=== PATIENT | female | born 1955 | race Caucasian/White ===

== ENCOUNTER → 2018-10-27 | Outpatient (CLI) | payer OTHER | LOC: M.RAD 10:17 | DX: Z12.31 Encounter for screening mammogram for malignant neoplasm of breast (principal) ==

== ENCOUNTER → 2018-10-29 | Outpatient (CLI) | payer OTHER | LOC: M.ULTRA 09:08 | DX: N63.23 Unspecified lump in the left breast, lower outer quadrant (principal) ==

== ENCOUNTER → 2018-11-05 | Outpatient (CLI) | payer OTHER ==
--- NOTE | 2018-11-10 11:06 | PATH ---
[address] [address] PATHOLOGY RPT PROCEDURE Name: SAL FUNG Room: [facility]#: [id number] Admission: 11/05/18 Date of : 55 Discharge: Report #: [id number] Path Case #: [id number] L[facility] Accession Number: [id number] . 01 Material submitted: . LEFT BREAST . 01 Clinical history: . 0.94 x 0.52 x 0.73 cm, 4:00, 8 cm from nipple . 02 Diagnosis: Left breast, 4:00, 8 cm from nipple, image guided core biopsies: - Benign breast tissue with usual ductal epithelial hyperplasia, cystic apocrine change and mild chronic inflammation, negative for atypia. See comment. LBQ/11/07/2018 . 02 Comment: Reviewed with Dr. Clovis Kennedy who agrees with the diagnosis. (DAVID/db; 11/07/2018) . 02 Electronically signed: . Lucien Acosta MD, Pathologist NPI- [id number] . 01 Gross description: . Received in formalin labeled "Sal Fung, left breast 4:00, 8 cm fn," are multiple needle cores of yellow-luong fibrofatty tissue measuring 2.3 x 2.0 x 0.5 cm in aggregate dimensions. The tissue is submitted in its entirety in cassettes A1 through A3. The cold ischemic time is less than one minute. The total formalin fixation time is 33 hours and 38 minutes. (TSD; 11/05/2018) TOB/TOB . 02 Pathologist provided ICD-10: N62, N61.0 . 02 CPT . 744491 Specimen Comment: A courtesy copy of this report has been sent to Specimen Comment: [phone], , . Specimen Comment: Report sent to ,DR STEVENSON / DR ALCARAZ Specimen Comment: A duplicate report has been generated due to demographic updates. Performed at: [address], [place] [id number] MD Kan Holt MD Phone: [phone] [place] [address] PATHOLOGY RPT PROCEDURE Name: SAL FUNG Room: [facility]#: [id number] Admission: 11/05/18 Date of : 55 Discharge: Report #: [id number] Path Case #: [id number] Performed at: [address] [place] [id number] MD Lucien Acosta MD Phone: [phone]
== END | disposition home or self-care (01) ==
LOC: M.ULTRA 07:53
DX: N61.0 Mastitis without abscess (principal); N62 Hypertrophy of breast; R92.1 Mammographic calcification found on diagnostic imaging of breast

== ENCOUNTER → 2019-04-17 | Outpatient (CLI) | payer OTHER | LOC: M.RAD 10:54 → M.ULTRA 11:30 | DX: N60.02 Solitary cyst of left breast (principal); R92.8 Other abnormal and inconclusive findings on diagnostic imaging of breast ==

== ENCOUNTER → 2019-12-15 | Outpatient (CLI) | payer OTHER | LOC: M.RAD 12:48 | DX: Z12.31 Encounter for screening mammogram for malignant neoplasm of breast (principal) ==

== ENCOUNTER 2020-09-14 20:01 | Inpatient (IN) | payer MEDICARE ==
[~2020-09-14] VITALS: Ht 170.2 cm; Wt 106.5 kg
[2020-09-14 20:18] VITALS: BP 148/86
[2020-09-14] MEDS ORDERED: WOMEN'S 50 PLU1 EAC1 PO (20:26)
[2020-09-14] MEDS ORDERED: VITAMIN D3 COM1 EACH PO (20:26)
[2020-09-14] MEDS ORDERED: APAP650 PO (20:27)
[2020-09-14] MEDS ORDERED: ST. JOSEPH ASPI81 MG PO (20:27)
[2020-09-14] MEDS ORDERED: ZYRTEC10 M5 PO (20:27)
[2020-09-14] MEDS ORDERED: CLARITIN10 MG PO (20:27)
[2020-09-14] MEDS ORDERED: KLOR-CON 1010 MEQ PO (20:28)
[2020-09-14] MEDS ORDERED: HYDROCHLOROTHIA25 M2 PO (20:28)
[2020-09-14] MEDS ORDERED: SINGULAIR 10 MG10 M1 PO (20:29)
[2020-09-14] MEDS ORDERED: DEXAMETHASONE 44 M1 PO (20:29)
[2020-09-14 20:40] LABS: HEMATOCRIT 42.8 % (37.0-47.0); HEMOGLOBIN 14.3 gm/dL (12.0-15.0); MCH 28.9 pg (26.0-34.0); MCHC 33.5 g/dL (28.0-37.0); MCV 86.4 fL (80.0-100.0); MPV 7.9 fl. (7.2-11.1); NUCLEATED RBCS 0 /100WBC; PLATELET COUNT* 130 thou/uL (150-400); RBC 4.96 mil/uL (4.20-5.00); RDW-CV 14.5 % (10.5-14.5); WBC 7.5 thou/uL (4.0-11.0)
[2020-09-14 20:52] LABS: CALCIUM 7.9 mg/dL (8.5-10.1); CREATININE 1.1 mg/dL (0.6-1.3); POTASSIUM 4.2 mmol/L (3.5-5.1)
[2020-09-14 20:53] LABS: PROTIME 10.5 Seconds (9.20-11.50)
[2020-09-14 21:03] LABS: ALBUMIN 2.7 g/dL (3.4-5.0); TOTAL BILIRUBIN 0.4 mg/dL (<0.1-1.0); TOTAL PROTEIN 7.5 g/dL (6.4-8.2)
[2020-09-14 21:11] LABS: ABSOLUTE LYMPHOCYTES 0.6 thou/uL (0.8-5.3); ABSOLUTE MONOCYTES 0.5 thou/uL (0.0-1.2); ABSOLUTE NEUTROPHILS 6.5 thou/uL (1.6-8.1)
[2020-09-14 21:13] LABS: PLATELET ESTIMATE INCREASED
[2020-09-14 22:41] LABS: pH 7.469 (7.340-7.450)
[2020-09-14 22:44] LABS: PO2 59.9 mmHg (75.0-100.0)
[2020-09-15] VITALS (9 sets, daily range): BP systolic 106–164; BP diastolic 45–74
--- NOTE | 2020-09-15 04:11 | NUR ---
PATIENT ARRIVED ON UNIT AT 0030. IV NOTED TO BE INFILTRATED. NEW IV PLACED. PATIENT ALERT AND ORIENTED TIMES FOUR. GAIT STEADY. EDUCATED ABOUT POLICIES AND PROCEDURES. NO COMPLAINTS OF PAIN OR DISCOMFORT NOTED. DOCUMENT CONTROL ASSISTANT AND HOURLY ROUNDING COMPLETED DOCUMENTED.
--- NOTE | 2020-09-15 10:14 | NUR ---
PATIENT HAS SLEPT WELL THROUGHOUT THE NIGHT. VSS ON 13L HIGH FLOW. MEDICATIONS GIVEN ORDERED AND CHARTED. ASSESSMENT CHARTED. PATIENT UP AD-TALI. NEW IV INSERTED IN RIGHT HAND-NS @ 70ML/HR. PATIENT INSTRUCTED TO USE CALL LIGHT WHEN NEEDING ASSISTANCE. HOURLY ROUNDS MADE. WILL CONTINUE WITH PLAN OF CARE AND NURSING TO MONITOR.
--- NOTE | 2020-09-15 17:28 | EKG ---
[place] [address] ELECTROCARDIOGRAM REPORT Name: SAL FUNG Room: [address] ADM IN .R.#: [id number] Admission: 09/14/20 Attend Phys: Landon Jones, Discharge: Date of : 55 Date of Service: 09/14/202010 Report #: [id number] THIS REPORT FOR: //name// [facility] ED Test Date: 2020-09-14 Test Time: 20:11:05 Pat Name: SAL FUNG Department: Room: [facility] Gender: F Purse Seining Hand: ROMAN : 1955 Requested By: Estefani Way Order Number: [id number] MD: Juwan Small Measurements Intervals [place] Rate: 85 P: 40 ID: 121 QRS: -64 QRSD: 92 T: -1 QT: 365 QTc: 434 Interpretive Statements Sinus rhythm Left anterior fascicular block RSR' in V1 or V2, right VCD Borderline T abnormalities, inferior leads Compared to ECG 11/02/2008 16:12:09 Left anterior fascicular block now present RSR' in V1 or V2 now present T-wave abnormality now present Electronically Signed On 09-15-2020 17:28:06 QUALITY ASSURANCE NURSE by Juwan Small [email or web address] <ELECTRONICALLY SIGNED> By: Juwan Small MD, [facility] 09/15/20 1728 10 10 Juwan mSall MD, [facility] /EPI
--- NOTE | 2020-09-15 18:36 | NUR ---
ASSESSMENT DOCUMENTED. MEDS GIVEN PER E-MAR. IV PATENT, FLUIDS INFUSING. TYLENOL GIVEN FOR HEADACHE WITH RELIEF. PT O2 INCREASED FROM 5LNC TO 7L NC AND PT STARTED COUGHING UP BLOOD TINGED SPUTUM. DR NOTIFIED, ORDERS RECIEVED. PTS UPDATED ON PLAN OF CARE.
[2020-09-15 23:21] LABS: PCO2 36.4 mmHg (35.0-45.0); pH 7.463 (7.340-7.450)
[2020-09-16] VITALS (154 sets, daily range): BP systolic 50–177; BP diastolic 36–91
--- NOTE | 2020-09-16 04:47 | NUR ---
ASSUMED PT CARE AT APPROX 1930. PT IS AWAKE AND ORIENTED X4. PT IS TRACING SR/ST ON THE PHOTO EDITOR. spO2 IS IN THE LOW 80'S ON 7L OF O2/HFC. RT INFORMED AND PT WAS PUT ON 8L OF O2/HFC AND A NON REBREATHER AT 15L, spO2 WENT UP TO 88-89%. PT DOES NOT APPEAR TO HAVE LABORED BREATHING AND DENIES SHORTNESS OF AIR AT REST. PROVIDED O2 SUPPORT VIA HEATED OPTIFLOW WITH 50L O2,fiO2 OF 100%, spO2=90-93%. DR CALDERON INFORMED, ORDERS OBTAINED AND CARRIED OUT. MEDS GIVEN PER NOV. PT IS CLOSELY MONITORED.
[2020-09-16 07:09] LABS: INFLUENZA A ANTIGEN Negative (Negative); INFLUENZA B ANTIGEN Negative (Negative)
[2020-09-16 09:10] LABS: CREATININE 0.8 mg/dL (0.6-1.3); POTASSIUM 3.7 mmol/L (3.5-5.1)
--- NOTE | 2020-09-16 10:47 | NUR ---
LATE ENTRY FOR 09/15 1600 SPOKE WITH PT.ON PHONE IN ROOM DUE TO COVID 19 AND IN ENHANCED PRECAUTIONS. SHE SAID SHE LIVES WITH HER . SHE IS NORMALLY INDEPENDENT. SHE DOES HAVE A HX OF ASTHMA. SAID HER MOTHER IN LAW JUST GOT OUT OF THE HOSPITAL AFTER HAVING COVID. PT.USES NO DME AND NO HX OF HH.
[2020-09-16 12:54] LABS: BE 7.1 mmol/L (-2 to +3); pH 7.468 (7.340-7.450)
[2020-09-16 12:59] LABS: PO2 49.5 mmHg (75.0-100.0)
[2020-09-16 13:06] LABS: ALBUMIN 2.3 g/dL (3.4-5.0); DIRECT BILIRUBIN 0.1 mg/dL (<0.1-0.3); TOTAL BILIRUBIN 0.3 mg/dL (<0.1-1.0)
--- NOTE | 2020-09-16 13:59 | CON ---
[address] [address] CONSULTATION Name: KENTONSAL ANN Room: [address] IN M.R.#: [id number] Admission: 09/14/20 Attend Phys: Landon Jones MD Discharge: Date of : 55 Report #: [id number] THIS REPORT FOR: cc: Aakash Echeverria MD, Matthew W. MD ~ Forrest Mcclure MD DATE OF SERVICE: 09/16/2020 CONSULT REQUESTED BY: Jaswant Nixon DO. INDICATION FOR CONSULTATION: Acute hypoxemic respiratory failure secondary to COVID-19. HISTORY OF PRESENT ILLNESS: This is a 65-year-old female with past medical history as mentioned below. The patient is a lifetime nonsmoker; however, she does have a history of obstructive sleep apnea and she uses a CPAP at home. Also, she does have a history of bronchial asthma. The patient is overweight with a body mass index of 38.4. This time the patient was initially admitted late in the day on 09/14/2020. Presentation was with acute increase in shortness of breath. The patient has had family members who are also sick and are diagnosed with COVID-19. She said that she was sick since 09/09 and had a high-grade fever of 102 degrees Fahrenheit, had been having some diarrhea, was feeling weak and was having a decrease in appetite. She also was coughing initially it was nonproductive and later on a green in color. She did not report any change in her smell or taste. The patient upon initial presentation was requiring about 3 liters of oxygen to maintain O2 saturation. She has been declining since admission. Overnight, she desaturated to the point that she was requiring 100% FiO2 with 55 liters of flow to maintain O2 saturation in the low 90s. This morning. O2 saturation dipped down to 85% with this therapy and the patient was placed on a BiPAP. The patient currently is on a BiPAP with 100% FiO2. She is saturating 92%. She is tachypneic with respiratory rate around 36-38, blood pressure, however, is holding of 148/72 this morning. The patient is alert, awake and oriented. She does have some swelling of lower extremities. She did not complain of calf pain. REVIEW OF SYSTEMS: For 12 points is negative except as mentioned above. PAST MEDICAL HISTORY: Bronchial asthma, obstructive sleep apnea, uses a CPAP at home, tonsillectomy, tubal ligation, surgery to the mandible, left elbow surgery and tonsillectomy. SOCIAL HISTORY: Lifetime nonsmoker, only rare alcohol use. [place] [address] CONSULTATION Name: SAL FUNG Room: [address] IN M.R.#: [id number] Admission: 09/14/20 Attend Phys: Landon Jones MD Discharge: Date of : 55 Report #: [id number] illegal drug use. CURRENT MEDICATIONS: List in [employer] reviewed. HOME MEDICATIONS: List also in [employer] reviewed. ALLERGIES: No known drug allergies. FAMILY HISTORY: There are other family members who are also diagnosed with COVID-19. PHYSICAL EXAMINATION: VITAL SIGNS: The patient appeared to be short of breath at rest, was on a BiPAP with 100% FiO2 at 16/8. Sed rate 12; however, she was breathing in the high 30s, afebrile today with a temperature of 36.4, did have a low-grade fever up to 37.7 overnight. HEENT: Head is normocephalic and atraumatic. There is a BiPAP in place. NECK: Does not show raised JVP, asymmetry, mass or lymph nodes. CHEST: Symmetrical expansion on inspection and palpation. On auscultation, breath sounds are bilaterally equal, but decreased. There is some accessory muscle use despite being on BiPAP. HEART: Regular. There is no murmur. ABDOMEN: Soft and nontender. EXTREMITIES: Lower extremities show 1+ edema with no calf tenderness. SKIN: Dry and intact. NEUROLOGICAL: Moves all extremities bilaterally equally and spontaneously with no focal deficit identified. LABORATORY DATA: The patient's lab work is in [employer] and this is reviewed. The patient's chest x-ray also in [facility] reviewed. The patient's CTA chest in [facility] both the films and report reviewed. I reviewed all of the chest x-ray films as well. ASSESSMENT AND PLAN: 1. Acute hypoxemic respiratory failure secondary to COVID-19. At this time we will keep her on BiPAP, once she is settled on BiPAP we will obtain an arterial blood gas and then reassess BiPAP settings. I already obtained a chest x-ray, which does show extensive infiltrates consistent with COVID-19. I suspect that there is a component of increase in pulmonary vascular congestion as well. The patient at this time appears to be too unstable to transport to the ICU without being endotracheally intubated. We will watch her in the COVID unit on BiPAP for now and see how she does. If she fails to improve, then I will be inclined to endotracheally intubate her in the COVID unit. If she does improve, then we will reevaluate as to whether we can transport her to the ICU without a BiPAP in [address] [place] [address] CONSULTATION Name: SOMLASHAWNSAL JOSE EDUARDO Room: [address] ADM IN M.R.#: [id number] Admission: 09/14/20 Attend Phys: Landon Jones MD Discharge: Date of : 55 Report #: [id number] We will reassess this afternoon. We will intubate if she declines or fails to improve. Considering her severe respiratory failure I also favor having a more secure IV access in the form of a PICC line. The patient also is having a Angulo catheter placed. 2. COVID-19. I will go ahead and increase her steroids. She already has been started on remdesivir. I went ahead and ordered one unit of convalescent plasma. I will be inclined to give him one more unit of convalescent plasma later. 3. Mild fluid overload. I will diurese her and follow response. Discontinue IV fluids. 4. Bronchial asthma, steroids as above. The patient also is on nebulized bronchodilators. 5. Obstructive sleep apnea. She is on a BiPAP. 6. Pulmonary infiltrates, I suspect there is a secondary bacterial infection as well. For now, I broadened her antibiotic coverage by switching azithromycin to Levaquin. We will continue with ceftriaxone. I am inclined to also consider MRSA coverage. More cultures and serologies are ordered. Also, ordered lab work for 3 p.m. today will review and advise. 7. Edema of lower extremity/evaluation for thromboembolic phenomena. She is on full dose Lovenox. We will do venous Doppler then reassess, if venous Dopplers are negative, then we can potentially consider cutting down on the Lovenox dose to intermediate dose later, the patient's platelets were mildly decreased on the as well. I have also ordered a repeat CBC and will reassess this once available. 8. Gastrointestinal prophylaxis, for now is on Pepcid. See further discussion regarding platelets as above. We will follow. 9. Minimal elevation in AST. Repeat LFTs as on remdesivir and follow serial LFTs. 10. The patient is critically ill at this time. The total time spent providing critical care to this patient today exceeds 40 minutes. <ELECTRONICALLY SIGNED> By: Forrest Mclcure MD 09/16/20 1359 1230 1315Aamando Mcclure MD /nt
--- NOTE | 2020-09-16 14:14 | NUR ---
RIGHT BASILIC VESSEL ACCESED FOR 5 ROMANSH TRIPLE PICC. LINE PRE-TRIMMED TO 39CM AND ADVANCED TO9 THE ZERO TITO WITH NO RESISTANCE MET. UPPER ARM CIRCUMFERENCE ABOVE INSERTION SITE= 15 1/2". SHERLOCK MAGNET AND 3CG CONFIRMATION OF TIP TERMINATION AT THE CAVOATRIAL JUNCTION APPRECIATED. GUIDEWIRE [id number], LINE FLUSHED AND INSERTION SITE DRESSED. REPORT GIVEN TO ALONZO BOWEN.
[2020-09-16 15:10] LABS: URINE BILIRUBIN NEGATIVE (Negative); URINE BLOOD NEGATIVE (Negative); URINE CLARITY CLEAR; URINE COLOR YELLOW; URINE GLUCOSE-RANDOM NEGATIVE (Negative); URINE KETONES NEGATIVE (Negative); URINE LEUKOCYTES-REFLEX NEGATIVE (Negative); URINE NITRITE-REFLEX NEGATIVE (Negative); URINE PROTEIN NEGATIVE (Negative); URINE UROBILINOGEN 0.2 E.U./dl (0.2-1.0)
--- NOTE | 2020-09-16 15:15 | NUR ---
ASSUMED CARE OF PATIENT THIS AM AT 0730. PATIENT IS ALERT AND ORIENTED X 4. SHE C/O A GIBSON THIS AM. HER O2 SATS WERE 83 TO 84% ON THE HIGH FLOW O2. PATIENT DESATTED TO THE 70S WHEN PLACED ON THE BEDPAN. PATIENT'S SATS VERY SLOW TO RECOVER BACK TO LOW 80'S. RESPIRATORY NOTIFIED AND PATIENT PLACED ON BIPAP. NURSE PRACTICIONER NOTIFIED OF DECREASED SATS. ORDERS GIVEN TO TRANSFER PATIENT TO THE ICU. DR CHARLES IN TO ROUND AND ORDERS GIVEN TO GIVE IV LASIX. PATIENT ALSO GIVEN IV SOLUMEDROL. PATIENT'S SATS INCREASED TO 90 TO 93 FOR A SHORT TIME. PATIENT'S SATS STARTED TRENDING DOWN AGAIN TO UPPER 80'S. NURSE LILLY NOTIFIED AND A RAPID RESPONSE INITATED. PATIENT INTUBATED IN THE ROOM AND TRANSFERRED TO ROOM 3 IN THE ICU PER BED. PATIENT'S NOTIFIED OF TRANSFER. PICC NURSE IN TO SEE PATIENT PRIOR TO HER GETTING INTUBATED AND TRIPLE LUMEN PICC LINE PLACED. TELE HAS SHOWN A STABLE SR. SIMON PLACED PER ORDER. PATIENT HAS DIURESED WELL. URINE SPECIMENS SENT TO THE LAB. REPORT GIVEN TO WAX POURER ON TRANSFER.
[2020-09-16 15:40] LABS: HEMATOCRIT 38.7 % (37.0-47.0); MCH 29.5 pg (26.0-34.0); MCHC 33.7 g/dL (28.0-37.0); MCV 87.5 fL (80.0-100.0); MPV 8.5 fl. (7.2-11.1); NUCLEATED RBCS 0 /100WBC; PLATELET COUNT* 142 thou/uL (150-400); RBC 4.43 mil/uL (4.20-5.00); RDW-CV 14.6 % (10.5-14.5); WBC 8.4 thou/uL (4.0-11.0)
[2020-09-16 15:46] LABS: ABSOLUTE LYMPHOCYTES 0.5 thou/uL (0.8-5.3); ABSOLUTE NEUTROPHILS 7.7 thou/uL (1.6-8.1); LYMPHOCYTES 5.5 %; POLYS 91.4 %
[2020-09-16 15:47] LABS: ABSOLUTE MONOCYTES 0.2 thou/uL (0.0-1.2); MONOCYTES 2.7 %
--- NOTE | 2020-09-16 16:14 | 2DMMODE ---
[place] [address] 2 D/M-MODE ECHOCARDIOGRAM Name: SOMLASHAWNSAL JOSE EDUARDO Room: [address] ADM IN .R.#: [id number] Admission: 09/14/20 Attend Phys: Landon Jones, Discharge: Date of : 55 Date of Service: 09/16/20 1614 Report #: [id number] THIS REPORT FOR: cc: Aakash Echeverria MD, Matthew W. MD Holkins,Juwan Moreno MD [facility] ~ APPROVED REPORT Study performed: 09/16/2020 14:56:36 EXAM: Comprehensive 2D, Doppler, and color-flow Echocardiogram Patient Location: In-Patient Room #: 003 Status: routine BSA: 2.20 HR: 66 bpm BP: 160/78 mmHg Rhythm: NSR Other Information Study Quality: Good Indications Dyspnea 2D Dimensions IVSd: 13.50 (7-11mm) LVOT Diam: 20.34 (18-24mm) LVDd: 36.39 mm PWd: 9.31 (7-11mm) Ascending Ao: 35.84 (22-36mm) LVDs: 23.67 (25-40mm) Aortic Root: 29.12 mm Volumes Left Atrial Volume (Systole) LA ESV Index: 17.80 mL/m2 Aortic Valve AoV Peak Faizan.: 1.25 m/s AO Peak Gr.: 6.22 mmHg LVOT Max P.84 mmHg AO Mean Gr.: 3.19 mmHg LVOT Mean P.20 mmHg LVOT Max V: 0.84 m/s AO V2 VTI: 20.70 cm LVOT Mean V: 0.49 m/s SHERICE (VTI): 2.52 cm2 LVOT V1 VTI: 16.05 [place] [address] 2 D/M-MODE ECHOCARDIOGRAM Name: SAL FUNG Room: [address] IN ..#: [id number] Admission: 09/14/20 Attend Phys: Landon Jones, Discharge: Date of : 55 Date of Service: 09/16/20 1614 Report #: [id number] Mitral Valve E/A Ratio: 1.59 MV Decel. Time: 227.91 ms MV E Max Faizan.: 0.50 m/s MV PHT: 66.09 ms MVA (PHT): 3.33 cm2 TDI E/Lateral E': 6.25 E/Medial E': 8.33 Medial E' Faizan.: 0.06 m/s Lateral E' Faizan.: 0.08 m/s Pulmonary Valve PV Peak Faizan.: 0.66 m/s PV Peak Gr.: 1.76 mmHg Tricuspid Valve RAP Estimate: 5.00 mmHg TR Peak Gr.: 14.17 mmHg RVSP: 19.00 mmHg PA Pressure: 19.00 mmHg Left Ventricle The left ventricle is normal size. There is normal LV segmental wall motion. Borderline concentric left ventricular hypertrophy. Left ventricular systolic function is normal. The left ventricular ejection fraction is within the normal range. LVEF is 55-60%. This study is not technically sufficient to allow evaluation of the LV diastolic function. Right Ventricle The right ventricle is normal size. The right ventricular systolic function is normal. Atria The left atrium size is normal. The right atrium size is normal. Aortic Valve The aortic valve is normal in structure. No aortic regurgitation is present. There is no aortic valvular stenosis. Mitral Valve The mitral valve is normal in structure. Trace mitral regurgitation. No evidence of mitral valve stenosis. Tricuspid Valve The tricuspid valve is normal in [place] [address] 2 D/M-MODE ECHOCARDIOGRAM Name: SAL FUNG JOSE EDUARDO Room: [address] IN [facility]#: [id number] Admission: 09/14/20 Attend Phys: Landon Jones, Discharge: Date of : 55 Date of Service: 09/16/20 1614 Report #: [id number] regurgitation. No pulmonary hypertension. Pulmonic Valve The pulmonary valve is normal in structure. Mild pulmonic regurgitation. Great Vessels The aortic root is normal in size. IVC is normal in size and collapses >50% with inspiration. Pericardium There is no pericardial effusion. <Conclusion> The left ventricle is normal size. Borderline concentric left ventricular hypertrophy. Left ventricular systolic function is normal. The left ventricular ejection fraction is within the normal range. LVEF is 55-60%. The right ventricle is normal size. The left atrium size is normal. The aortic valve is normal in structure. The mitral valve is normal in structure. The tricuspid valve is normal in structure. IVC is normal in size and collapses >50% with inspiration. There is no pericardial effusion. There is normal LV segmental wall motion. <ELECTRONICALLY SIGNED> By: Juwan Small MD, FACC 09/16/20 1614 13 13 Juwan Small MD, FACC /INF
[2020-09-16 16:46] LABS: BE 4.6 mmol/L (-2 to +3); PCO2 40.6 mmHg (35.0-45.0); pH 7.467 (7.340-7.450)
[2020-09-16 16:51] LABS: PO2 54.1 mmHg (75.0-100.0)
[2020-09-16 16:53] LABS: CALCIUM 7.9 mg/dL (8.5-10.1); MAGNESIUM 2.3 mg/dL (1.8-2.4); POTASSIUM 3.9 mmol/L (3.5-5.1)
--- NOTE | 2020-09-16 20:16 | NUR ---
PT RECEIVED FROM [facility] AT 1415, VENT SUPPORT WITH FI02 AT 100%, PC 22. SEDATION WITH VERSED TO 10 MG/HR AND FENTANYL TO 150 MCG/HR CURRENTLY. O2 SATS AT HIGH 80s TO LOW 90s. OREN NOTIFIED, PEEP INCREASED TO 15 AT 1800. I UNIT OF CONVALESCENT PLASMA GIVEN. LT RADIAL ART LINE PUT IN BY DR RUIZ AT 1550. MRSA SWAB AND CULTURE SPUTUM SENT. FAMILY UPDATED.
[2020-09-17] VITALS (23 sets, daily range): BP systolic 111–138; BP diastolic 50–70
--- NOTE | 2020-09-17 04:41 | NUR ---
ASSUMED CARE AT 1910H, ON VENT AT 100% WITH VERSED AND FENTANYL DRIP AT MAX DOSE. WITH GRIMANCE WHEN MOVED AND ORAL CARE DONE. PT WILL DESAT WHEN TURNED AND BACK UP TO 94% SLOWLY. PULMO CALLED WITH ORDER CARRIED OUT. KEPT SAT >90%. WITH THROMBUS IN LEFT LEG, LIMB ALERT BRACE ON. 2ND CONVALESCENT GIVEN. CONTINUE MONITORING AND TOWARDS GOALS.
[2020-09-17 06:01] LABS: ABSOLUTE LYMPHOCYTES 0.4 thou/uL (0.8-5.3); ABSOLUTE MONOCYTES 0.4 thou/uL (0.0-1.2); ABSOLUTE NEUTROPHILS 5.6 thou/uL (1.6-8.1); BASOPHILS 0.1 %; HEMATOCRIT 36.4 % (37.0-47.0); HEMOGLOBIN 11.9 gm/dL (12.0-15.0); LYMPHOCYTES 5.6 %; MCH 28.4 pg (26.0-34.0); MCHC 32.7 g/dL (28.0-37.0); MCV 86.8 fL (80.0-100.0); MONOCYTES 5.7 %; MPV 8.1 fl. (7.2-11.1); NUCLEATED RBCS 0 /100WBC; PLATELET COUNT* 135 thou/uL (150-400); POLYS 88.6 %; RBC 4.19 mil/uL (4.20-5.00); RDW-CV 14.6 % (10.5-14.5); WBC 6.3 thou/uL (4.0-11.0)
[2020-09-17 06:32] LABS: PHOSPHORUS* 3.2 mg/dL (2.5-4.9)
[2020-09-17 06:36] LABS: ALBUMIN 2.2 g/dL (3.4-5.0); CALCIUM 7.6 mg/dL (8.5-10.1); MAGNESIUM 2.5 mg/dL (1.8-2.4); POTASSIUM 3.5 mmol/L (3.5-5.1); TOTAL BILIRUBIN 0.3 mg/dL (<0.1-1.0); TOTAL PROTEIN 6.4 g/dL (6.4-8.2)
[2020-09-17 10:57] LABS: BE 1.4 mmol/L (-2 to +3); PCO2 41.7 mmHg (35.0-45.0); pH 7.415 (7.340-7.450)
[2020-09-17 11:00] LABS: PO2 59.3 mmHg (75.0-100.0)
--- NOTE | 2020-09-17 17:12 | NUR ---
PATIENT REMAINS INTUBATED AND SEDATED FOR VENT SUPPORT. PATIENT IS ABLE TO WAKE UP AND NOD YES/NO, FOLLOWS COMMANDS. DENIES PAIN. PATIENT UNABLE TO TOLERATE ANY TYPE OF MOVEMENT SHE WILL DESAT AND IT TAKES A WHILE FOR HER TO RECOVER. PATIENT CURRENTLY ON HIGH VENT SETTINGS. GOOD URINE OUTPUT. FEBRILE AT TIMES THIS AFTERNOON, TYLENOL GIVEN. NO FURTHER CONCERNS AT THIS TIME. WILL CONITNUE TO MONITOR AND CARE PER PLAN OF CARE.
[2020-09-17 18:31] LABS: CALCIUM 8.1 mg/dL (8.5-10.1); MAGNESIUM 2.7 mg/dL (1.8-2.4); POTASSIUM 4.4 mmol/L (3.5-5.1)
[2020-09-18] VITALS (19 sets, daily range): BP systolic 119–149; BP diastolic 50–72
--- NOTE | 2020-09-18 04:39 | NUR ---
ASSUMED CARE AT 1900H, ON VENT AT 100% AND TOLERATED. PT FOLOWED COMMANDS AND NODDING/SHAKING HER HEAD WHEN ASKED QUESTIONS. REORIENT PT. STILL ON FENTANYL AND VERSED DRIP. NO DISTRES NOTED. STILL DESATING WHEN TURNED OR MOVED. CONTINUE MONITORING AND TOWARDS GOALS.
[2020-09-18 06:21] LABS: ABSOLUTE LYMPHOCYTES 0.4 thou/uL (0.8-5.3); ABSOLUTE MONOCYTES 0.5 thou/uL (0.0-1.2); ABSOLUTE NEUTROPHILS 6.6 thou/uL (1.6-8.1); BASOPHILS 0.2 %; HEMATOCRIT 34.5 % (37.0-47.0); HEMOGLOBIN 11.3 gm/dL (12.0-15.0); LYMPHOCYTES 5.1 %; MCH 28.3 pg (26.0-34.0); MCHC 32.8 g/dL (28.0-37.0); MCV 86.3 fL (80.0-100.0); MONOCYTES 6.3 %; NUCLEATED RBCS 0 /100WBC; PLATELET COUNT* 155 thou/uL (150-400); POLYS 88.4 %; RDW-CV 14.6 % (10.5-14.5); WBC 7.5 thou/uL (4.0-11.0)
[2020-09-18 07:02] LABS: ALBUMIN 2.3 g/dL (3.4-5.0); CREATININE 0.9 mg/dL (0.6-1.3); MAGNESIUM 2.8 mg/dL (1.8-2.4); TOTAL BILIRUBIN 0.3 mg/dL (<0.1-1.0); TOTAL PROTEIN 6.2 g/dL (6.4-8.2)
[2020-09-18 07:05] LABS: POTASSIUM 3.2 mmol/L (3.5-5.1)
[2020-09-18 09:06] LABS: BE 2.1 mmol/L (-2 to +3); PCO2 33.9 mmHg (35.0-45.0); PO2 99.1 mmHg (75.0-100.0); pH 7.487 (7.340-7.450)
[2020-09-18 17:48] LABS: BE 0.9 mmol/L (-2 to +3); PCO2 39.9 mmHg (35.0-45.0); PO2 73.3 mmHg (75.0-100.0); pH 7.421 (7.340-7.450)
[2020-09-18 18:48] LABS: CALCIUM 7.9 mg/dL (8.5-10.1); CREATININE 0.8 mg/dL (0.6-1.3)
[2020-09-18 18:49] LABS: POTASSIUM 4.6 mmol/L (3.5-5.1)
[2020-09-19] VITALS (29 sets, daily range): BP systolic 130–162; BP diastolic 57–70
--- NOTE | 2020-09-19 05:56 | NUR ---
ASSUMED CARE AT 1900H, VENT AT 90% AND TITRATED. STILL ON VERSED AND FENTANYL DRIP. OPENED EYES TO COMMAND. NO DISTRESS AND NO FEVER NOTED. NOTED WITH HEMATOMA ON RIGHT LOWER ABDOMEN AND GETTING BIGGER. WARM THEN COLD COMPRESS DONE. CONINUE MONITORING AND TOWARDS GOALS. VERSED DECREASE TO 8MG AND FIO2 TO 80%.
[2020-09-19 06:12] LABS: ABSOLUTE LYMPHOCYTES 0.3 thou/uL (0.8-5.3); ABSOLUTE MONOCYTES 0.5 thou/uL (0.0-1.2); ABSOLUTE NEUTROPHILS 7.1 thou/uL (1.6-8.1); BASOPHILS 0.2 %; HEMATOCRIT 32.2 % (37.0-47.0); HEMOGLOBIN 10.5 gm/dL (12.0-15.0); LYMPHOCYTES 3.5 %; MCH 28.2 pg (26.0-34.0); MCHC 32.7 g/dL (28.0-37.0); MCV 86.2 fL (80.0-100.0); MONOCYTES 6.2 %; NUCLEATED RBCS 0 /100WBC; PLATELET COUNT* 179 thou/uL (150-400); POLYS 90.1 %; RBC 3.74 mil/uL (4.20-5.00); RDW-CV 14.9 % (10.5-14.5); WBC 7.9 thou/uL (4.0-11.0)
[2020-09-19 06:34] LABS: ALBUMIN 2.6 g/dL (3.4-5.0); CALCIUM 8.3 mg/dL (8.5-10.1); CREATININE 0.9 mg/dL (0.6-1.3); TOTAL BILIRUBIN 0.4 mg/dL (<0.1-1.0)
[2020-09-19 06:36] LABS: POTASSIUM 3.4 mmol/L (3.5-5.1)
[2020-09-19 08:24] LABS: BE -0.9 mmol/L (-2 to +3); PCO2 37.7 mmHg (35.0-45.0); PO2 71.9 mmHg (75.0-100.0); pH 7.411 (7.340-7.450)
--- NOTE | 2020-09-19 13:44 | NUR ---
Nutrition: Noted pt started on TF of Nepro at 20 ml/hr. Rec goal rate of 45 ml/hr to provide 1944 kcal, 87 g proteim and 785 ml water to meet 100% est kcal and protein needs; defer fluid needs.
--- NOTE | 2020-09-19 16:34 | NUR ---
ICU rounds: Down from j/s. Intubated. FIo2 60%, peep 15. Wakes up and follows commands. No pressors
[2020-09-20] VITALS (61 sets, daily range): BP systolic 122–155; BP diastolic 56–70
[2020-09-20 05:17] LABS: PREALBUMIN 21.6 mg/dL (18.0-35.7)
[2020-09-20 05:19] LABS: ALBUMIN 2.4 g/dL (3.4-5.0); CALCIUM 8.5 mg/dL (8.5-10.1); CREATININE 0.8 mg/dL (0.6-1.3); POTASSIUM 4.3 mmol/L (3.5-5.1); TOTAL BILIRUBIN 0.3 mg/dL (<0.1-1.0); TOTAL PROTEIN 5.6 g/dL (6.4-8.2)
[2020-09-20 05:26] LABS: HEMATOCRIT 32.4 % (37.0-47.0); HEMOGLOBIN 10.5 gm/dL (12.0-15.0); MCH 28.1 pg (26.0-34.0); MCHC 32.3 g/dL (28.0-37.0); MCV 86.9 fL (80.0-100.0); MPV 8.2 fl. (7.2-11.1); NUCLEATED RBCS 0 /100WBC; PLATELET COUNT* 207 thou/uL (150-400); RBC 3.73 mil/uL (4.20-5.00); RDW-CV 14.9 % (10.5-14.5); WBC 10.1 thou/uL (4.0-11.0)
[2020-09-20 06:55] LABS: ABSOLUTE LYMPHOCYTES 0.7 thou/uL (0.8-5.3); ABSOLUTE MONOCYTES 0.2 thou/uL (0.0-1.2); ABSOLUTE NEUTROPHILS 9.2 thou/uL (1.6-8.1); ANISOCYTOSIS 1+; MYELOCYTES 1 %; PLATELET ESTIMATE ADEQUATE; POIKILOCYTOSIS 1+
--- NOTE | 2020-09-20 13:45 | NUR ---
ICU rounds: Covid positive. Remains on vent and sedated. FIO2 at 65%. Tube feeds
--- NOTE | 2020-09-20 19:35 | NUR ---
VENT SUPPORT CONTD, FIO2 DOWN TO 50% AND PEEP DOWN TO 13 THIS SHIFT, TOLERATING WELL. VSS. SEDATION CONTD WITH VERSED AND FENTANY DRIPS. TOLERATING TUBE FEEDS. INSULIN LISPRO ADDED, LOW DOSE SLIDING SCALE. PROGRESSING TOWARDS GOALS.
[2020-09-21] VITALS (74 sets, daily range): BP systolic 111–160; BP diastolic 52–74
[2020-09-21 04:51] LABS: BE -3.4 mmol/L (-2 to +3); PCO2 37.5 mmHg (35.0-45.0); PO2 73.9 mmHg (75.0-100.0); pH 7.373 (7.340-7.450)
[2020-09-21 05:37] LABS: ABSOLUTE LYMPHOCYTES 0.5 thou/uL (0.8-5.3); ABSOLUTE MONOCYTES 0.3 thou/uL (0.0-1.2); ABSOLUTE NEUTROPHILS 10.1 thou/uL (1.6-8.1); BASOPHILS 0.1 %; HEMATOCRIT 30.8 % (37.0-47.0); HEMOGLOBIN 9.9 gm/dL (12.0-15.0); LYMPHOCYTES 4.2 %; MCH 28.3 pg (26.0-34.0); MCHC 32.1 g/dL (28.0-37.0); MCV 88.1 fL (80.0-100.0); MONOCYTES 2.8 %; MPV 8.2 fl. (7.2-11.1); NUCLEATED RBCS 0 /100WBC; PLATELET COUNT* 219 thou/uL (150-400); POLYS 92.9 %; RBC 3.49 mil/uL (4.20-5.00); RDW-CV 15.2 % (10.5-14.5); WBC 10.9 thou/uL (4.0-11.0)
[2020-09-21 06:23] LABS: PREALBUMIN 25.2 mg/dL (18.0-35.7)
--- NOTE | 2020-09-21 06:40 | NUR ---
ASSUMED PATIENT CARE AT 1900. ASSESSMENTS COMPLETED CHARTED. CARDIAC MONITORING IN PLACE FOR PATIENT SAFETY. NO BOWEL MOVEMENT DURING SHIFT. PATIENT TURNED Q2 FOR COMFORT AND SKIN INTEGRITY. FALL PRECAUTIONS IN PLACE FOR PATIENT SAFETY. BED LOCKED AND IN LOWEST POSITION.
[2020-09-21 06:49] LABS: ALBUMIN 2.3 g/dL (3.4-5.0); CALCIUM 8.7 mg/dL (8.5-10.1); CREATININE 0.9 mg/dL (0.6-1.3); POTASSIUM 4.4 mmol/L (3.5-5.1); TOTAL BILIRUBIN 0.3 mg/dL (<0.1-1.0); TOTAL PROTEIN 5.4 g/dL (6.4-8.2)
--- NOTE | 2020-09-21 07:30 | NUR ---
ASSUMED CARE OF PATIENT.
--- NOTE | 2020-09-21 14:09 | NUR ---
ICU rounds: Covid positive. Remains on vent, fio2 at 45%, working to wean o2.
--- NOTE | 2020-09-21 17:45 | NUR ---
SOME PROGRESSION TOWARDS GOALS. WEANED FIO2 AND PEEP DOWN, SEE CHARTING. GOOD UOP POST LASIX. REMAINS COMFORTABLE ON VENTILATOR.
[2020-09-22] VITALS (60 sets, daily range): BP systolic 117–183; BP diastolic 52–82
--- NOTE | 2020-09-22 07:43 | NUR ---
PATIENT SEDATED ON VENTILATOR. SLIGHT PROGRESSION TOWARD GOALS. NO BM THIS SHIFT.
--- NOTE | 2020-09-22 12:23 | NUR ---
ICU rounds: Covid positive. Remains on vent. Fio2 at 45%, peep at 16. Tolerating tube feeds. Family facetime meeting planned for Saturday.
[2020-09-22 15:53] LABS: ABSOLUTE LYMPHOCYTES 0.5 thou/uL (0.8-5.3); ABSOLUTE MONOCYTES 0.4 thou/uL (0.0-1.2); ABSOLUTE NEUTROPHILS 12.3 thou/uL (1.6-8.1); BASOPHILS 0.3 %; EOSINOPHILS 0.1 %; HEMATOCRIT 28.7 % (37.0-47.0); HEMOGLOBIN 9.4 gm/dL (12.0-15.0); LYMPHOCYTES 3.9 %; MCH 28.4 pg (26.0-34.0); MCHC 32.7 g/dL (28.0-37.0); MCV 86.9 fL (80.0-100.0); MONOCYTES 3.3 %; MPV 7.7 fl. (7.2-11.1); NUCLEATED RBCS 0 /100WBC; PLATELET COUNT* 220 thou/uL (150-400); POLYS 92.4 %; WBC 13.3 thou/uL (4.0-11.0)
[2020-09-23] VITALS (44 sets, daily range): BP systolic 121–171; BP diastolic 58–81
[2020-09-23 05:21] LABS: HEMATOCRIT 27.1 % (37.0-47.0); HEMOGLOBIN 8.9 gm/dL (12.0-15.0); MCH 28.5 pg (26.0-34.0); MCHC 32.8 g/dL (28.0-37.0); MCV 86.8 fL (80.0-100.0); MPV 8.1 fl. (7.2-11.1); NUCLEATED RBCS 0 /100WBC; PLATELET COUNT* 225 thou/uL (150-400); RBC 3.12 mil/uL (4.20-5.00); RDW-CV 14.9 % (10.5-14.5)
[2020-09-23 05:34] LABS: ALBUMIN 2.1 g/dL (3.4-5.0); CREATININE 0.7 mg/dL (0.6-1.3); POTASSIUM 4.8 mmol/L (3.5-5.1); TOTAL BILIRUBIN 0.3 mg/dL (<0.1-1.0); TOTAL PROTEIN 5.1 g/dL (6.4-8.2)
[2020-09-23 05:54] LABS: ABSOLUTE LYMPHOCYTES 0.4 thou/uL (0.8-5.3); PLATELET ESTIMATE ADEQUATE
[2020-09-23 05:55] LABS: ABSOLUTE NEUTROPHILS 11.6 thou/uL (1.6-8.1); ANISOCYTOSIS 1+; METAMYELOCYTES 3 %; MYELOCYTES 1 %
--- NOTE | 2020-09-23 07:13 | NUR ---
ASSESSMENTS CHARTED. NO NOTICABLE PROGRESS TOWARD GOALS. PATIENT DEVELOPING HEMATOMAS ON ABDOMEN. REMAINS INTUBATED AND SEDATED. TOLERATING TUBE FEEDING.
[2020-09-23 14:55] LABS: PCO2 35.3 mmHg (35.0-45.0); PO2 72.9 mmHg (75.0-100.0); pH 7.416 (7.340-7.450)
[2020-09-24] VITALS (47 sets, daily range): BP systolic 103–167; BP diastolic 49–77
--- NOTE | 2020-09-24 02:21 | NUR ---
RECEIVED REPORT AND ASSUMED CARE AT 1900. VSS. ICU MONITORING IN PLACE. ASSESMENT COMPLETED CHARTED. PATIENT HAS MYKEL RED BLOOD FROM et SUCTIONING.PHYSICIAN NOTIFIED AND LOVENOX HELD. BED LOCKED IN LOWEST POSITION, BED ALARM ON.
[2020-09-24 04:48] LABS: ABSOLUTE EOSINOPHILS 0.1 thou/uL (0.0-0.7); ABSOLUTE LYMPHOCYTES 0.4 thou/uL (0.8-5.3); ABSOLUTE MONOCYTES 0.3 thou/uL (0.0-1.2); ABSOLUTE NEUTROPHILS 13.2 thou/uL (1.6-8.1); EOSINOPHILS 0.5 %; HEMATOCRIT 26.1 % (37.0-47.0); HEMOGLOBIN 8.4 gm/dL (12.0-15.0); MCH 28.3 pg (26.0-34.0); MCHC 32.3 g/dL (28.0-37.0); MCV 87.6 fL (80.0-100.0); MONOCYTES 2.1 %; MPV 8.7 fl. (7.2-11.1); NUCLEATED RBCS 0 /100WBC; PLATELET COUNT* 202 thou/uL (150-400); POLYS 94.4 %; RBC 2.98 mil/uL (4.20-5.00); RDW-CV 14.9 % (10.5-14.5)
[2020-09-24 05:02] LABS: PREALBUMIN 32.9 mg/dL (18.0-35.7)
[2020-09-24 05:04] LABS: CREATININE 0.7 mg/dL (0.6-1.3); TOTAL BILIRUBIN 0.3 mg/dL (<0.1-1.0)
[2020-09-24 05:17] LABS: BE -1.1 mmol/L (-2 to +3); PO2 72.1 mmHg (75.0-100.0); pH 7.422 (7.340-7.450)
--- NOTE | 2020-09-24 21:54 | NUR ---
VSS; REMAINS SEDATED ON VENTILATOR. FENTANYL AND VERSED GTT INFUSING ORDERED. TF INFUSING AT GOAL OF 20ML/HR, RESIDUALS WNL. NO EXPANSION OF R GROIN HEMATOMA. TURNED Q2HR THROUGHOUT THE SHIFT.
[2020-09-25] VITALS (71 sets, daily range): BP systolic 101–209; BP diastolic 49–87
[2020-09-25 04:37] LABS: ABSOLUTE LYMPHOCYTES 0.5 thou/uL (0.8-5.3); ABSOLUTE MONOCYTES 0.3 thou/uL (0.0-1.2); BASOPHILS 0.3 %; EOSINOPHILS 0.1 %; HEMATOCRIT 25.1 % (37.0-47.0); HEMOGLOBIN 8.2 gm/dL (12.0-15.0); LYMPHOCYTES 3.7 %; MCH 28.5 pg (26.0-34.0); MCHC 32.6 g/dL (28.0-37.0); MCV 87.5 fL (80.0-100.0); MONOCYTES 2.6 %; MPV 8.7 fl. (7.2-11.1); NUCLEATED RBCS 0 /100WBC; PLATELET COUNT* 183 thou/uL (150-400); POLYS 93.3 %; RBC 2.87 mil/uL (4.20-5.00); RDW-CV 14.7 % (10.5-14.5); WBC 12.8 thou/uL (4.0-11.0)
[2020-09-25 04:52] LABS: CALCIUM 8.1 mg/dL (8.5-10.1); CREATININE 0.6 mg/dL (0.6-1.3); POTASSIUM 4.8 mmol/L (3.5-5.1); TOTAL BILIRUBIN 0.3 mg/dL (<0.1-1.0); TOTAL PROTEIN 5.2 g/dL (6.4-8.2)
[2020-09-25 05:43] LABS: BE 0.7 mmol/L (-2 to +3); PCO2 40.5 mmHg (35.0-45.0); PO2 81.2 mmHg (75.0-100.0); pH 7.414 (7.340-7.450)
[2020-09-25 06:56] LABS: PREALBUMIN 30.2 mg/dL (18.0-35.7)
[2020-09-25 14:23] LABS: BE 0.2 mmol/L (-2 to +3); PCO2 40.6 mmHg (35.0-45.0); PO2 85.3 mmHg (75.0-100.0); pH 7.406 (7.340-7.450)
--- NOTE | 2020-09-25 17:16 | NUR ---
VENT SUPPORT CONTD, PC DOWN TO 16 THIS SHIFT, TOLERATING WELL, OTHER SETTINGS UNCHANGED. SEDATED WITH VERSED AND FENTANYL GTTs. VSS. TOLERATING TUBE FEEDS. NO BM THIS SHIFT. Q2 TURNS AND ORAL CARE PROVIDED.
[2020-09-26] VITALS (65 sets, daily range): BP systolic 107–158; BP diastolic 48–71
[2020-09-26 03:55] LABS: ABSOLUTE LYMPHOCYTES 0.5 thou/uL (0.8-5.3); ABSOLUTE MONOCYTES 0.5 thou/uL (0.0-1.2); ABSOLUTE NEUTROPHILS 13.3 thou/uL (1.6-8.1); BASOPHILS 0.1 %; HEMATOCRIT 24.5 % (37.0-47.0); LYMPHOCYTES 3.4 %; MCH 28.5 pg (26.0-34.0); MCHC 32.7 g/dL (28.0-37.0); MCV 87.4 fL (80.0-100.0); MONOCYTES 3.3 %; NUCLEATED RBCS 0 /100WBC; PLATELET COUNT* 170 thou/uL (150-400); POLYS 93.2 %; RDW-CV 14.9 % (10.5-14.5); WBC 14.2 thou/uL (4.0-11.0)
[2020-09-26 04:26] LABS: CALCIUM 8.4 mg/dL (8.5-10.1); CREATININE 0.8 mg/dL (0.6-1.3); POTASSIUM 4.6 mmol/L (3.5-5.1); TOTAL BILIRUBIN 0.3 mg/dL (<0.1-1.0); TOTAL PROTEIN 5.2 g/dL (6.4-8.2)
[2020-09-26 04:58] LABS: PREALBUMIN 30.7 mg/dL (18.0-35.7)
[2020-09-26 12:21] LABS: BE 2.8 mmol/L (-2 to +3); PCO2 42.8 mmHg (35.0-45.0); PO2 70.1 mmHg (75.0-100.0); pH 7.425 (7.340-7.450)
--- NOTE | 2020-09-26 14:00 | NUR ---
ICU rounds: Covid positive. Remains vented and sedated. Peep down to 11. FIO2 at 55%. Tolerating TF. Full Code
--- NOTE | 2020-09-26 18:05 | NUR ---
NO ACUTE EVENTS, PT TOLERATING VENT SETTINGS. Q2H AND PRN TURNS AND ORAL CARE. RESIDUAL TUBE FEEDS DISGARDED, SEE TUBE FEEDING DOCUMENTATION. ABD DISTENDED AND FIRM AT HEMATOMA SITE. PT OPENS EYES TO PAIN. GOAL OF RASS -2 ACHIEVED PER MAR. ADEQUATE OUTPUT.
[2020-09-27] VITALS (51 sets, daily range): BP systolic 130–192; BP diastolic 52–91
[2020-09-27 04:14] LABS: MCH 29.3 pg (26.0-34.0); MCHC 33.3 g/dL (28.0-37.0); MCV 87.9 fL (80.0-100.0); MPV 8.3 fl. (7.2-11.1); NUCLEATED RBCS 1 /100WBC; PLATELET COUNT* 145 thou/uL (150-400); RBC 2.38 mil/uL (4.20-5.00); RDW-CV 14.8 % (10.5-14.5); WBC 10.9 thou/uL (4.0-11.0)
[2020-09-27 04:53] LABS: ALBUMIN 2.3 g/dL (3.4-5.0); CALCIUM 8.4 mg/dL (8.5-10.1); CREATININE 0.6 mg/dL (0.6-1.3); POTASSIUM 4.7 mmol/L (3.5-5.1); TOTAL BILIRUBIN 0.4 mg/dL (<0.1-1.0); TOTAL PROTEIN 5.2 g/dL (6.4-8.2)
[2020-09-27 05:33] LABS: PREALBUMIN 28.8 mg/dL (18.0-35.7)
--- NOTE | 2020-09-27 06:39 | NUR ---
ASSUMED CARE AT 1910H, ON VENT AT 55% AND TOLERATED. ON VERSED AND FENTANYL DRIP. OPENED EYES WITH PAIN. NO FEVER NOTED. FIO2 UP TO 65%. STILL NO BM. CONTINUE MONITORING AND TOWARDS GOALS.
[2020-09-27 06:49] LABS: ABSOLUTE BASOPHILS 0.1 thou/uL (0.0-0.2); ABSOLUTE LYMPHOCYTES 0.3 thou/uL (0.8-5.3); ABSOLUTE MONOCYTES 0.1 thou/uL (0.0-1.2); ABSOLUTE NEUTROPHILS 10.4 thou/uL (1.6-8.1)
[2020-09-27 06:50] LABS: HYPOCHROMASIA 3+; MICROCYTES 1+; PLATELET ESTIMATE DECREASED
[2020-09-27 06:51] LABS: TOXIC GRANULATION 3+
--- NOTE | 2020-09-27 14:20 | NUR ---
ICU rounds: Covid positive. Remains on vent and sedated. Peep down to 11. Fio2 up to 70%. Art and central line. Angulo. Tolerating TF. No BM, KUB completed, moderate stools found, meds given. Versed and fentanyl gtt.
--- NOTE | 2020-09-27 18:37 | NUR ---
SIMON'S CATHETER LEAKED, HENCE REPLACED. PT SATTING HIGH 80s TO LOW 90s THROUGHOUT THE DAY, FIO2 INCREASED TO 85% AND ALL OTHER SETTINGS UNCHANGED. TOLERATING TUBE FEEDS, GOOD UOP. UPDATED. Q2 TURNS AND ORAL CARE GIVEN.
[2020-09-27 19:47] LABS: HEMATOCRIT 24.4 % (37.0-47.0); HEMOGLOBIN 8.1 gm/dL (12.0-15.0)
[2020-09-28] VITALS (24 sets, daily range): BP systolic 114–198; BP diastolic 48–91
--- NOTE | 2020-09-28 04:10 | NUR ---
ASSUMED CARE AT 1910H, ON VENT AT 80% AND ON VERSED AND FENTANYL DRIP MAX DOSE. EARLY IN MY SHIFT, PT WAS DESATING AND UP FIO2 UP GRADUALLY TILL 100%. STILL OPENED EYES TO PAIN AND COUGHING AT TIMES. NO FEVER NOTED. CONTINUE MONITORING AND TOWARDS GOALS. FIO2 AT 95%.
[2020-09-28 04:49] LABS: ABSOLUTE LYMPHOCYTES 0.5 thou/uL (0.8-5.3); ABSOLUTE MONOCYTES 0.3 thou/uL (0.0-1.2); BASOPHILS 0.2 %; HEMATOCRIT 24.8 % (37.0-47.0); HEMOGLOBIN 8.4 gm/dL (12.0-15.0); LYMPHOCYTES 3.1 %; MCH 29.6 pg (26.0-34.0); MCHC 33.7 g/dL (28.0-37.0); MCV 87.8 fL (80.0-100.0); MONOCYTES 2.3 %; MPV 8.8 fl. (7.2-11.1); NUCLEATED RBCS 0 /100WBC; PLATELET COUNT* 143 thou/uL (150-400); POLYS 94.4 %; RBC 2.82 mil/uL (4.20-5.00); RDW-CV 14.7 % (10.5-14.5); WBC 14.8 thou/uL (4.0-11.0)
[2020-09-28 05:08] LABS: ALBUMIN 2.3 g/dL (3.4-5.0); CALCIUM 8.3 mg/dL (8.5-10.1); CREATININE 0.7 mg/dL (0.6-1.3); TOTAL BILIRUBIN 0.3 mg/dL (<0.1-1.0); TOTAL PROTEIN 5.4 g/dL (6.4-8.2)
[2020-09-28 05:21] LABS: PREALBUMIN 28.7 mg/dL (18.0-35.7)
--- NOTE | 2020-09-28 06:45 | NUR ---
PT WOKE UP, PRN VERSED IV GIVEN BUT STILL AGITATED AND DESATING. REPOSITION AND FIO2 UP TO 95%. PT CALMED DOWN, 02 SAT 97%. NEED MORE PRN SEDATION.
--- NOTE | 2020-09-28 15:07 | NUR ---
ICU rounds: Covid positive. Remains on vent and sedated. FIO2 90%, peep 11. Tolerating TF. New cath yesterday.
--- NOTE | 2020-09-28 18:26 | NUR ---
PT IS INTUBATED AND SEDATED, COVID POSITIVE FIO2 90% PEEP 11 COUGHS WITH MOVEMENT AND SUCTION, SUCTION IS BLOOD-TINGED PT OPENS EYES TO VOICE AND CAN NOD YES OR NO DENIES PAIN WHEN ASKED ANDREW TRIPLE LUMEN PICC AND LEFT WRIST ART LINE AVAILABLE AND PATENT BP CAN RUN HIGH AT TIMES TURN Q2 HOUR SIMON WITH LIGHT TO DARK YELLOW URINE SOME ODOR AND SEDIMENT 3200 OUTPUT TODAY CNT WITH VERSED AND FENTANYL FOR SEDATION WILL CONTINUE TO MONITOR
[2020-09-29] VITALS (27 sets, daily range): BP systolic 98–192; BP diastolic 31–95
--- NOTE | 2020-09-29 06:33 | NUR ---
ASSUMED PATIENT CARE AT 1900. PATIENT INTUBATED AND SEDATED AT THIS TIME. ROUSES EASILY WHEN SEDATION IS STOPPED FPR ANY REASON. ART LINE CAME OUT THIS AM APPROX 0400. PRESSURE HELD PER PROTOCOL. DRESSING APPLIED. WILL CONTINUE TO MONITOR
[2020-09-29 08:26] LABS: CALCIUM 8.3 mg/dL (8.5-10.1); CREATININE 0.5 mg/dL (0.6-1.3); POTASSIUM 4.7 mmol/L (3.5-5.1)
--- NOTE | 2020-09-29 13:51 | NUR ---
ICU rounds: Covid positive. Minimal progress. ID consulted. Dr to have family discussion tomorrow regarding POC. Unable to titrate sedation. Good urine outpt. Tolerating TF
--- NOTE | 2020-09-29 18:34 | NUR ---
PATIENT REMAINS INTUBATED AND SEDATED. POSTURING NOTED AND PHYSICIAN IS AWARE. CT HEAD COPMPLETE. MESSAGE SENT TO PHYSICIAN. NO NEW ORDERS AT THIS TIME. CALLED AND UPDATED. NO FURTHER CONCERNS AT THIS TIME. WILL CONTINUE TO MONITOR AND CARE PER PLAN OF CARE.
[2020-09-30] VITALS (75 sets, daily range): BP systolic 87–164; BP diastolic 43–83
[2020-09-30 05:58] LABS: HEMATOCRIT 23.4 % (37.0-47.0); HEMOGLOBIN 7.8 gm/dL (12.0-15.0); MCH 29.9 pg (26.0-34.0); MCHC 33.6 g/dL (28.0-37.0); MCV 89.1 fL (80.0-100.0); RBC 2.62 mil/uL (4.20-5.00); RDW-CV 15.3 % (10.5-14.5); WBC 23.7 thou/uL (4.0-11.0)
[2020-09-30 06:16] LABS: ALBUMIN 2.3 g/dL (3.4-5.0); CALCIUM 7.8 mg/dL (8.5-10.1); CREATININE 0.5 mg/dL (0.6-1.3); MAGNESIUM 2.2 mg/dL (1.8-2.4); POTASSIUM 4.2 mmol/L (3.5-5.1); TOTAL BILIRUBIN 0.4 mg/dL (<0.1-1.0); TOTAL PROTEIN 5.5 g/dL (6.4-8.2)
--- NOTE | 2020-09-30 06:31 | NUR ---
ASSUMED PATIENT CARE AT 1900. ASSESSMENTS COMPLETED CHARTED. CARDIAC MONITORING IN PLACE. PATIENT VERY AGITATED AT BEGINNING OF SHIFT. PHYSICIAN NOTIFIED, NEW ORDERS RECEIVED AND FOLLOWED, MEDICATIONS GIVEN, SEE EMAR FOR DETAILS. PROPOFOL DRIP STARTED AND TITRATED FOR PATIENT COMFORT AND VENT EFFICACY. PATIENT NOW LIGHTLY SEDATED AND RESTING. Q2 TURNS FOR COMFORT AND SKIN INTEGRITY. BED LOCKED AND IN LOWEST POSITION. HOURLY ROUNDING IN PLACE FOR PATIENT SAFETY.
[2020-09-30 12:08] LABS: HEMATOCRIT 20.9 % (37.0-47.0); MCH 29.6 pg (26.0-34.0); MCHC 33.2 g/dL (28.0-37.0); MPV 8.3 fl. (7.2-11.1); RBC 2.35 mil/uL (4.20-5.00); WBC 19.6 thou/uL (4.0-11.0)
[2020-10-01] VITALS (54 sets, daily range): BP systolic 83–163; BP diastolic 37–83
[2020-10-01 05:00] LABS: PO2 80.5 mmHg (75.0-100.0); pH 7.356 (7.340-7.450)
[2020-10-01 05:04] LABS: PCO2 69.3 mmHg (35.0-45.0)
[2020-10-01 05:14] LABS: MCH 29.2 pg (26.0-34.0); MCHC 32.8 g/dL (28.0-37.0); MCV 89.2 fL (80.0-100.0); MPV 9.1 fl. (7.2-11.1); RBC 2.23 mil/uL (4.20-5.00); RDW-CV 15.3 % (10.5-14.5); WBC 22.1 thou/uL (4.0-11.0)
[2020-10-01 05:31] LABS: HEMOGLOBIN 6.5 gm/dL (12.0-15.0)
[2020-10-01 05:32] LABS: HEMATOCRIT 19.8 % (37.0-47.0)
[2020-10-01 05:33] LABS: ALBUMIN 2.1 g/dL (3.4-5.0); ALKALINE PHOSPHATASE 58 U/L (46-116); ANION GAP < 0 mmol/L (7-16); BUN 29 mg/dL (7-18); CALCIUM 8.1 mg/dL (8.5-10.1); CHLORIDE 102 mmol/L (98-107); CO2 37 mmol/L (21-32); CREATININE 0.5 mg/dL (0.6-1.3); GLUCOSE 194 mg/dL (70-99); MAGNESIUM 2.5 mg/dL (1.8-2.4); POTASSIUM 4.5 mmol/L (3.5-5.1); SGOT 30 U/L (15-37); SGPT 60 U/L (30-65); SODIUM 138 mmol/L (136-145); TOTAL BILIRUBIN 0.3 mg/dL (<0.1-1.0); TOTAL PROTEIN 5.1 g/dL (6.4-8.2)
--- NOTE | 2020-10-01 18:29 | NUR ---
VSS through most of shift. RT made vent changes, pt hr became elevated. Gave metoprolol x1, hr came down to 70's-80's. Q2H turns, pt tolerates turning, however, within an hour to an hour and a half, pt bp steadily dropped into the 80's. Once repositioned, bp became within normal ranges. Pt remains to be tachycardic and slightly restless. Pt has significant bruising throughout abd and arms. Edema noted.
[2020-10-02] VITALS (50 sets, daily range): BP systolic 85–171; BP diastolic 38–74
[2020-10-02 05:38] LABS: BE 9.8 mmol/L (-2 to +3); PO2 100.3 mmHg (75.0-100.0); pH 7.358 (7.340-7.450)
[2020-10-02 05:42] LABS: PCO2 67.1 mmHg (35.0-45.0)
[2020-10-02 06:36] LABS: HEMATOCRIT 23.6 % (37.0-47.0); HEMOGLOBIN 7.8 gm/dL (12.0-15.0); MCH 29.5 pg (26.0-34.0); MCHC 33.2 g/dL (28.0-37.0); MCV 88.9 fL (80.0-100.0); MPV 9.1 fl. (7.2-11.1); RBC 2.65 mil/uL (4.20-5.00); WBC 20.2 thou/uL (4.0-11.0)
[2020-10-02 06:47] LABS: ALBUMIN 2.1 g/dL (3.4-5.0); ALKALINE PHOSPHATASE 62 U/L (46-116); ANION GAP < 0 mmol/L (7-16); BUN 31 mg/dL (7-18); CALCIUM 8.2 mg/dL (8.5-10.1); CHLORIDE 103 mmol/L (98-107); CO2 38 mmol/L (21-32); CREATININE 0.5 mg/dL (0.6-1.3); GLUCOSE 153 mg/dL (70-99); MAGNESIUM 2.4 mg/dL (1.8-2.4); POTASSIUM 4.4 mmol/L (3.5-5.1); SGOT 27 U/L (15-37); SGPT 50 U/L (30-65); SODIUM 139 mmol/L (136-145); TOTAL BILIRUBIN 0.3 mg/dL (<0.1-1.0); TOTAL PROTEIN 4.9 g/dL (6.4-8.2)
--- NOTE | 2020-10-02 09:56 | NUR ---
Dr. Daugherty ordered nutrition consult. Left Message with Mally for consult.
[2020-10-02 12:22] LABS: BE 13.2 mmol/L (-2 to +3); PO2 75.5 mmHg (75.0-100.0); pH 7.433 (7.340-7.450)
--- NOTE | 2020-10-02 15:24 | NUR ---
Eitan has brought in a small black radio for his . Eitan has requested to have the radio on and on certain stations as much as possible. A small note in a ziploc bag is attached to the radio.
--- NOTE | 2020-10-02 17:21 | NUR ---
Pt is not tolerating turns. Turning even slightly causes bp to drop to 80's and map <60. Having to readjust her position more frequently than Q2H.
--- NOTE | 2020-10-02 18:15 | NUR ---
BP became soft in the 80's with poor map during turns. Attempting to just use pillows at this time. Pt does not tolerate wedges. Good urine output this shift after lasix x1 dose. BL edema noted. Mag citrate given with no results. No other complications at this time.
[2020-10-03] VITALS (46 sets, daily range): BP systolic 88–157; BP diastolic 40–120
--- NOTE | 2020-10-03 04:10 | NUR ---
ASSUMED CARE AT 1900H, ON VENT AT 65% AND TOLERATED. PT WAS TACHYPNIC AND TACHYCARDIC WHEN TURNED TO SIDE, PRN VERSED GIVEN AND PROPOFOL TITRATED. NO FEVER AND NO BLEEDING NOTED. PT LOCALIZED/WITHDREW TO PAIN AND OPEN EYES SOMETIMES TO PAIN. STILL PENDING MRI. CONTINUE MONITORING AND TOWARDS GOALS. VERSED AND FENTANYL AT MAX DOSE. PROPOFOL AT 40MICS.
[2020-10-03 05:36] LABS: HEMATOCRIT 22.9 % (37.0-47.0); HEMOGLOBIN 7.7 gm/dL (12.0-15.0); MCH 30.2 pg (26.0-34.0); MCHC 33.5 g/dL (28.0-37.0); MCV 90.2 fL (80.0-100.0); MPV 8.8 fl. (7.2-11.1); RBC 2.53 mil/uL (4.20-5.00); RDW-CV 15.4 % (10.5-14.5); WBC 20.8 thou/uL (4.0-11.0)
[2020-10-03 05:57] LABS: CREATININE 0.4 mg/dL (0.6-1.3)
--- NOTE | 2020-10-03 12:11 | NUR ---
TUBE FEED RATE TITRATED TO 30ML/HR PER FARE COLLECTOR RECOMMENDATION TAKING INTO ACCOUNT PROPOFOL INFUSION. DR LOTT ON UNIT AND AGREEABLE TO THIS PLAN.
[2020-10-03 12:19] LABS: LIPASE 117 U/L (73-393); TRIGLYCERIDE 495 mg/dL (<150)
--- NOTE | 2020-10-03 14:12 | NUR ---
ICU rounds: Intubated and sedated. Fio2 75%. Tolerating TF
[2020-10-04] VITALS (33 sets, daily range): BP systolic 107–158; BP diastolic 37–111
[2020-10-04 04:49] LABS: ALBUMIN 2.4 g/dL (3.4-5.0); CALCIUM 8.7 mg/dL (8.5-10.1); CREATININE 0.4 mg/dL (0.6-1.3); HEMATOCRIT 20.4 % (37.0-47.0); MAGNESIUM 2.8 mg/dL (1.8-2.4); MCH 31.2 pg (26.0-34.0); MCHC 33.8 g/dL (28.0-37.0); MCV 92.4 fL (80.0-100.0); MPV 9.1 fl. (7.2-11.1); NUCLEATED RBCS 0 /100WBC; PLATELET COUNT* 92 thou/uL (150-400); POTASSIUM 4.1 mmol/L (3.5-5.1); RBC 2.21 mil/uL (4.20-5.00); RDW-CV 16.2 % (10.5-14.5); TOTAL BILIRUBIN 0.5 mg/dL (<0.1-1.0); TOTAL PROTEIN 5.1 g/dL (6.4-8.2); WBC 14.1 thou/uL (4.0-11.0)
[2020-10-04 04:59] LABS: HEMOGLOBIN 6.9 gm/dL (12.0-15.0)
[2020-10-04 05:49] LABS: ABSOLUTE LYMPHOCYTES 0.8 thou/uL (0.8-5.3); ABSOLUTE MONOCYTES 0.4 thou/uL (0.0-1.2); ABSOLUTE NEUTROPHILS 12.8 thou/uL (1.6-8.1); MYELOCYTES 2 %; PLATELET ESTIMATE DECREASED
[2020-10-04 05:55] LABS: ANISOCYTOSIS 1+; HYPOCHROMASIA 1+; POIKILOCYTOSIS 1+; TARGET CELLS Occasional
--- NOTE | 2020-10-04 07:52 | NUR ---
3435 ASSUMED CARE OF PATIENT. PLEASE SEE DOCUMENTED ASSESSMENT. TO RECEIVEC ONE UNIT PRBCS.
[2020-10-04 08:23] LABS: BE 15.1 mmol/L (-2 to +3); pH 7.317 (7.340-7.450)
[2020-10-04 08:28] LABS: PCO2 86.7 mmHg (35.0-45.0); PO2 58.1 mmHg (75.0-100.0)
[2020-10-04 12:21] LABS: HEMATOCRIT 23.7 % (37.0-47.0); HEMOGLOBIN 8.2 gm/dL (12.0-15.0)
[2020-10-04 13:18] LABS: BE 13.5 mmol/L (-2 to +3); PO2 72.4 mmHg (75.0-100.0); pH 7.359 (7.340-7.450)
[2020-10-04 13:19] LABS: PCO2 74.7 mmHg (35.0-45.0)
--- NOTE | 2020-10-04 13:53 | NUR ---
ICU rounds: Remains vented and sedated. FIo2 80%, peep 15. Abg not good this AM. Versed, Propofal and Fentanyl gtts. Pulm following. HBG down to 6.9 today, unit of blood transfused. Had BM over NOC. No pressors. Pt advocate in to facetime with Pt's family. Following.
[2020-10-04 17:04] LABS: BE 12.4 mmol/L (-2 to +3); PO2 74.4 mmHg (75.0-100.0); pH 7.414 (7.340-7.450)
[2020-10-04 17:22] LABS: PCO2 61.8 mmHg (35.0-45.0)
[2020-10-04 17:37] LABS: ABSOLUTE LYMPHOCYTES 0.1 thou/uL (0.8-5.3); ABSOLUTE MONOCYTES 0.1 thou/uL (0.0-1.2); ABSOLUTE NEUTROPHILS 10.4 thou/uL (1.6-8.1); BASOPHILS 0.3 %; EOSINOPHILS 0.2 %; HEMATOCRIT 22.6 % (37.0-47.0); HEMOGLOBIN 7.8 gm/dL (12.0-15.0); LYMPHOCYTES 1.4 %; MCH 30.4 pg (26.0-34.0); MCHC 34.4 g/dL (28.0-37.0); MCV 88.3 fL (80.0-100.0); MONOCYTES 0.9 %; MPV 8.7 fl. (7.2-11.1); NUCLEATED RBCS 0 /100WBC; PLATELET COUNT* 71 thou/uL (150-400); POLYS 97.2 %; RBC 2.56 mil/uL (4.20-5.00); RDW-CV 15.9 % (10.5-14.5); WBC 10.7 thou/uL (4.0-11.0)
[2020-10-04 17:47] LABS: ANION GAP < 0 mmol/L (7-16); BUN 27 mg/dL (7-18); CALCIUM 8.7 mg/dL (8.5-10.1); CHLORIDE 99 mmol/L (98-107); CO2 41 mmol/L (21-32); CREATININE 0.4 mg/dL (0.6-1.3); GLUCOSE 249 mg/dL (70-99); MAGNESIUM 2.6 mg/dL (1.8-2.4); POTASSIUM 4.4 mmol/L (3.5-5.1); SODIUM 139 mmol/L (136-145)
--- NOTE | 2020-10-04 18:44 | NUR ---
NO PROGRESS TOWARDS GOALS. FIO2 AND PIP INCREASED THIS AM. ABG'S HAVE IMPROVED AFTER DIURESIS. SEEMS TO PREFER NOT TO LIE ON LEFT SIDE. TOLERATING TUBE FEEDING. HEAVILY SEDATED AND TITRATING PROPFOL DOWN. NO SEDATION VACATION TODAY PER ORDER. BOWELS ARE MOVING. SPOUSE DID FACETIME TODAY AND WAS UPDATED ON PATIENT STATUS.
[2020-10-05] VITALS (46 sets, daily range): BP systolic 100–209; BP diastolic 45–77
[2020-10-05 03:53] LABS: ABSOLUTE LYMPHOCYTES 0.3 thou/uL (0.8-5.3); ABSOLUTE MONOCYTES 0.3 thou/uL (0.0-1.2); ABSOLUTE NEUTROPHILS 9.6 thou/uL (1.6-8.1); BASOPHILS 0.1 %; EOSINOPHILS 0.2 %; HEMATOCRIT 20.8 % (37.0-47.0); LYMPHOCYTES 2.8 %; MCH 29.9 pg (26.0-34.0); MCHC 33.7 g/dL (28.0-37.0); MCV 88.7 fL (80.0-100.0); MONOCYTES 2.6 %; MPV 8.7 fl. (7.2-11.1); NUCLEATED RBCS 0 /100WBC; PLATELET COUNT* 74 thou/uL (150-400); POLYS 94.3 %; RBC 2.35 mil/uL (4.20-5.00); RDW-CV 16.1 % (10.5-14.5); WBC 10.2 thou/uL (4.0-11.0)
[2020-10-05 04:12] LABS: ALBUMIN 2.7 g/dL (3.4-5.0); ALKALINE PHOSPHATASE 70 U/L (46-116); ANION GAP < 0 mmol/L (7-16); BUN 25 mg/dL (7-18); CALCIUM 8.2 mg/dL (8.5-10.1); CHLORIDE 102 mmol/L (98-107); CO2 44 mmol/L (21-32); CREATININE 0.4 mg/dL (0.6-1.3); GLUCOSE 116 mg/dL (70-99); MAGNESIUM 2.6 mg/dL (1.8-2.4); SGOT 33 U/L (15-37); SGPT 45 U/L (30-65); SODIUM 142 mmol/L (136-145); TOTAL BILIRUBIN 0.5 mg/dL (<0.1-1.0); TOTAL PROTEIN 5.3 g/dL (6.4-8.2)
[2020-10-05 04:13] LABS: PHOSPHORUS* 2.6 mg/dL (2.5-4.9)
--- NOTE | 2020-10-05 06:36 | NUR ---
PT REMAINS ON VENTILATORR.ETT 7.5 25 @LIP INTACT AND CONNECTED TO VENT. VENT SETTINGS ARE PC 15 RATE 18 FIO2 80% AND PEEP 10. OGT INTACT AND SECURED AT 65. NEPHRO FEEDING CONNECTED AND INFUSING AT 30 CC/HR. JAVA PROGRAMMING PROFESSOR INTACT AND ALARMS SET. SIMON INTACT AND PATENT DRAINING YELLOW URINE AT THIS TIME TO BEDSIDE BAG. PT WAS WEANED OFF PROPOFOL DR REQUESTED. NO ACUTE CHANGES DURING SHIFT. WILL CONTINUE TO [facility]
[2020-10-05 08:24] LABS: pH 7.432 (7.340-7.450)
[2020-10-05 08:27] LABS: PCO2 66.6 mmHg (35.0-45.0)
--- NOTE | 2020-10-05 14:32 | NUR ---
ICU rounds: Covid positive. Remain on vent and sedated, fio2 80%. Will need trach and peg once fio2 and peep better. Remains the same. Tolerating TFs
[2020-10-05 18:13] LABS: CALCIUM 8.5 mg/dL (8.5-10.1); CREATININE 0.4 mg/dL (0.6-1.3); MAGNESIUM 2.6 mg/dL (1.8-2.4)
[2020-10-05 18:15] LABS: PROTIME 10.3 Seconds (9.20-11.50)
[2020-10-06] VITALS (31 sets, daily range): BP systolic 95–185; BP diastolic 41–82
--- NOTE | 2020-10-06 04:30 | NUR ---
ASSUMED CARE AT 1910h, ON VENT AT 80% AND TITRATED. ON VERSED AND FENTANYL MAX DOSE. WITHDREW TO PAIN. NO BLEEDING AND NO FEVER NOTED. PULMO CALLED WITH ORDERS CARRIED OUT. CONTINUE MONITORING AND TOWARDS GOALS. FIO2 AT 75%
--- NOTE | 2020-10-06 05:10 | NUR ---
PT HAD ONE BM IN MY SHIFT WITH MODERATE RED TO MAROON LOOSE/LIQUID STOOL.
[2020-10-06 05:14] LABS: ANION GAP < 0 mmol/L (7-16); BUN 28 mg/dL (7-18); CALCIUM 8.1 mg/dL (8.5-10.1); CHLORIDE 100 mmol/L (98-107); CO2 39 mmol/L (21-32); CREATININE 0.4 mg/dL (0.6-1.3); GLUCOSE 138 mg/dL (70-99); MAGNESIUM 2.4 mg/dL (1.8-2.4); POTASSIUM 3.5 mmol/L (3.5-5.1); SODIUM 137 mmol/L (136-145)
[2020-10-06 05:32] LABS: MCH 30.2 pg (26.0-34.0); MCHC 33.8 g/dL (28.0-37.0); MCV 89.5 fL (80.0-100.0); MPV 8.7 fl. (7.2-11.1); RBC 2.14 mil/uL (4.20-5.00); RDW-CV 16.5 % (10.5-14.5); WBC 9.7 thou/uL (4.0-11.0)
[2020-10-06 05:45] LABS: HEMATOCRIT 19.1 % (37.0-47.0); HEMOGLOBIN 6.5 gm/dL (12.0-15.0)
[2020-10-06 11:23] LABS: BE 8.9 mmol/L (-2 to +3); pH 7.428 (7.340-7.450)
[2020-10-06 11:31] LABS: PCO2 52.9 mmHg (35.0-45.0)
--- NOTE | 2020-10-06 14:33 | NUR ---
ICU rounds: Covid positive. Remains on vent and sedated. Bleeding out of rectum, unit of blood given, GI to be notified.
[2020-10-06 15:02] LABS: ABSOLUTE EOSINOPHILS 0.1 thou/uL (0.0-0.7); ABSOLUTE LYMPHOCYTES 0.3 thou/uL (0.8-5.3); ABSOLUTE MONOCYTES 0.3 thou/uL (0.0-1.2); ABSOLUTE NEUTROPHILS 8.3 thou/uL (1.6-8.1); BASOPHILS 0.1 %; EOSINOPHILS 1.2 %; HEMATOCRIT 22.9 % (37.0-47.0); HEMOGLOBIN 7.8 gm/dL (12.0-15.0); LYMPHOCYTES 3.1 %; MCH 29.7 pg (26.0-34.0); MCV 87.4 fL (80.0-100.0); MONOCYTES 2.8 %; MPV 8.2 fl. (7.2-11.1); NUCLEATED RBCS 0 /100WBC; PLATELET COUNT* 87 thou/uL (150-400); POLYS 92.8 %; RBC 2.62 mil/uL (4.20-5.00); RDW-CV 15.4 % (10.5-14.5)
[2020-10-06 15:12] LABS: CALCIUM 8.2 mg/dL (8.5-10.1); CREATININE 0.4 mg/dL (0.6-1.3); MAGNESIUM 2.4 mg/dL (1.8-2.4); POTASSIUM 4.1 mmol/L (3.5-5.1)
--- NOTE | 2020-10-06 18:56 | NUR ---
PT SEDATED ON THE VENT RESPONDS ONLY TO PAINFUL STIMULI EYES CLOSED SKIN BRUISED AND EDEMATOUS ST ON THE MONITOR ART LINE POSITIONAL SATS BECAME BETTER T/O DAY LOOKS COMFORTABLE DARK RED BMS THIS AM 1U OF BLOOD GIVEN GI TO SEE PT TOMORROW POSSIBLE EGD FEEDINGS STOPPED UNTIL THEY FIGURE IT OUT FACE TIME WITH TODAY SCDS CONT VERSED AND FENT CONT ALSO FC DRAINED 1200 DARK YELLOW URINE Q2H TURNS BACKSIDE WITHOUT ANY ISSUES
[2020-10-07] VITALS (28 sets, daily range): BP systolic 102–210; BP diastolic 46–77
[2020-10-07 00:29] LABS: HEMATOCRIT 22.5 % (37.0-47.0); HEMOGLOBIN 7.8 gm/dL (12.0-15.0)
[2020-10-07 05:41] LABS: ABSOLUTE EOSINOPHILS 0.2 thou/uL (0.0-0.7); ABSOLUTE LYMPHOCYTES 0.8 thou/uL (0.8-5.3); ABSOLUTE MONOCYTES 0.5 thou/uL (0.0-1.2); ABSOLUTE NEUTROPHILS 7.9 thou/uL (1.6-8.1); BASOPHILS 0.3 %; HEMATOCRIT 22.2 % (37.0-47.0); HEMOGLOBIN 7.5 gm/dL (12.0-15.0); LYMPHOCYTES 8.6 %; MCH 29.5 pg (26.0-34.0); MCV 86.8 fL (80.0-100.0); MONOCYTES 5.2 %; MPV 8.2 fl. (7.2-11.1); NUCLEATED RBCS 0 /100WBC; PLATELET COUNT* 106 thou/uL (150-400); POLYS 83.9 %; RBC 2.55 mil/uL (4.20-5.00); WBC 9.4 thou/uL (4.0-11.0)
[2020-10-07 05:51] LABS: ALBUMIN 2.3 g/dL (3.4-5.0); CALCIUM 7.9 mg/dL (8.5-10.1); CREATININE 0.4 mg/dL (0.6-1.3); MAGNESIUM 2.5 mg/dL (1.8-2.4); POTASSIUM 3.9 mmol/L (3.5-5.1); TOTAL BILIRUBIN 0.5 mg/dL (<0.1-1.0); TOTAL PROTEIN 5.2 g/dL (6.4-8.2)
--- NOTE | 2020-10-07 06:33 | NUR ---
ASSUMED CARE AT 1910H, ON VENT AT 70% AND TOLERATED THE WHOLE NIGHT AND SEEN PT TAKING SMALL BREATH. STILL ON VERSED AND FENTANYL. NO DISTRESS AND NO FEVER NOTED. PT TOLERATED TURN. ONE SMALL BLOODY STOOL IN MY SHIFT. KEPT NPO. CONTINUE MONITORING AND TOWARDS GOALS.
--- NOTE | 2020-10-07 08:57 | NUR ---
9818 ASSUMED CARE OF PATIENT. OLIVER SEE DOCUMENED ASSESSMENT. PT IS INCONTINENT OF SMALL AMOUNT DULL RED LIQUID STOOL.
[2020-10-07 11:16] LABS: BE 11.7 mmol/L (-2 to +3); PCO2 46.3 mmHg (35.0-45.0); pH 7.508 (7.340-7.450)
[2020-10-07 11:19] LABS: PO2 53.1 mmHg (75.0-100.0)
--- NOTE | 2020-10-07 14:07 | NUR ---
ICU rounds: Covid positive. Remains on vent and sedated. Some blood in stools
[2020-10-07 17:00] LABS: BE 9.4 mmol/L (-2 to +3); pH 7.418 (7.340-7.450)
[2020-10-07 17:02] LABS: PCO2 55.4 mmHg (35.0-45.0); PO2 143.5 mmHg (75.0-100.0)
--- NOTE | 2020-10-07 17:40 | NUR ---
PATIENT NOT PROGRESSING TOWARDS GOALS. FIO2 INCREASED TO 75% WITH ABG NOTED. HAS BEEN NPO PENDING EVALUATION BY GI FOR EGD. STOOLS ARE DECREASING. HAS REQUIRED HYDRALAZINE AND METOPROLOL TODAY FOR HYPERTENSION. PT HAS MOVED ARMS AND LEGS SLIGHTLY TODAY ON HER OWN AND HAS STRONG COUGH. DIURESED CHARTED. UPDATED SPOUSE ON PHONE REGARDING PATIENT STATUS.
[2020-10-08] VITALS (44 sets, daily range): BP systolic 85–185; BP diastolic 37–62
[2020-10-08 04:47] LABS: ABSOLUTE EOSINOPHILS 0.3 thou/uL (0.0-0.7); ABSOLUTE LYMPHOCYTES 0.7 thou/uL (0.8-5.3); ABSOLUTE MONOCYTES 0.7 thou/uL (0.0-1.2); BASOPHILS 0.2 %; EOSINOPHILS 2.6 %; HEMATOCRIT 21.5 % (37.0-47.0); HEMOGLOBIN 7.3 gm/dL (12.0-15.0); LYMPHOCYTES 7.2 %; MCH 29.9 pg (26.0-34.0); MCHC 33.8 g/dL (28.0-37.0); MCV 88.3 fL (80.0-100.0); MPV 7.6 fl. (7.2-11.1); NUCLEATED RBCS 1 /100WBC; PLATELET COUNT* 121 thou/uL (150-400); RBC 2.43 mil/uL (4.20-5.00); WBC 9.6 thou/uL (4.0-11.0)
--- NOTE | 2020-10-08 04:57 | NUR ---
ASSUMED CARE AT 1910H, ON VENT AT 75% AND TITRATED. ON VERSED AND FENTANYL DRIP. NO DISTRESS AND NO FEVER NOTED. PRN MEDS GIVEN FOR HTN AND SEDATION. CONTINUE MONITORING AND TOWARDS GOALS. FIO2 AT 55%.
[2020-10-08 05:22] LABS: ALBUMIN 2.9 g/dL (3.4-5.0); CALCIUM 8.3 mg/dL (8.5-10.1); CREATININE 0.3 mg/dL (0.6-1.3); MAGNESIUM 2.5 mg/dL (1.8-2.4); POTASSIUM 3.7 mmol/L (3.5-5.1); TOTAL BILIRUBIN 0.8 mg/dL (<0.1-1.0); TOTAL PROTEIN 5.8 g/dL (6.4-8.2)
[2020-10-08 07:51] LABS: BE 4.9 mmol/L (-2 to +3); PO2 77.4 mmHg (75.0-100.0); pH 7.438 (7.340-7.450)
--- NOTE | 2020-10-08 18:01 | NUR ---
New order for Precedex, per Dr Mcclure he wanted to titrate her of versed and start precedex. Patient blood pressure became hypotensive. Patient remains of Versed and Fent and tolerating well.
--- NOTE | 2020-10-08 19:30 | NUR ---
ASSUMED CARE OF PATIENT
[2020-10-09] VITALS (98 sets, daily range): BP systolic 86–228; BP diastolic 35–93
[2020-10-09 05:20] LABS: HEMATOCRIT 20.9 % (37.0-47.0); HEMOGLOBIN 7.1 gm/dL (12.0-15.0); MCH 30.3 pg (26.0-34.0); MCHC 33.8 g/dL (28.0-37.0); MCV 89.5 fL (80.0-100.0); MPV 8.1 fl. (7.2-11.1); NUCLEATED RBCS 0 /100WBC; PLATELET COUNT* 130 thou/uL (150-400); RBC 2.33 mil/uL (4.20-5.00); RDW-CV 16.2 % (10.5-14.5)
[2020-10-09 05:31] LABS: ALBUMIN 2.7 g/dL (3.4-5.0); CALCIUM 8.6 mg/dL (8.5-10.1); CREATININE 0.4 mg/dL (0.6-1.3); MAGNESIUM 2.3 mg/dL (1.8-2.4); POTASSIUM 3.3 mmol/L (3.5-5.1); TOTAL BILIRUBIN 0.7 mg/dL (<0.1-1.0); TOTAL PROTEIN 5.6 g/dL (6.4-8.2)
--- NOTE | 2020-10-09 06:15 | NUR ---
SMALL PROGRESSION TOWARDS GOALS-WEANED DOWN PEEP BUT INCREASED FIO2. DIFFICULTY MANAGING SEDATION AND BP. SEE TITRATION AND VITALS. BEFORE BATH, HYPOTENSIVE. BECOMES HYPERTENSIVE WITH STIMULATION. BP ELEVATED DURING BATH BUT DIDN'T RETURN TO NORMOTENSIVE WITH NO STIMULATION. SEE EMAR.
[2020-10-09 08:25] LABS: ABSOLUTE EOSINOPHILS 0.1 thou/uL (0.0-0.7); ABSOLUTE LYMPHOCYTES 0.5 thou/uL (0.8-5.3); ABSOLUTE MONOCYTES 0.6 thou/uL (0.0-1.2); ABSOLUTE NEUTROPHILS 6.9 thou/uL (1.6-8.1); MYELOCYTES 2 %
[2020-10-09 08:26] LABS: HYPOCHROMASIA 2+; PLATELET ESTIMATE DECREASED
[2020-10-09 08:27] LABS: MICROCYTES 1+; OVALOCYTES 1+
[2020-10-09 08:59] LABS: BE 3.5 mmol/L (-2 to +3); PCO2 37.2 mmHg (35.0-45.0); pH 7.482 (7.340-7.450)
[2020-10-09 16:06] LABS: BE 4.8 mmol/L (-2 to +3); PCO2 41.5 mmHg (35.0-45.0); PO2 76.8 mmHg (75.0-100.0); pH 7.462 (7.340-7.450)
[2020-10-09 16:56] LABS: ABSOLUTE LYMPHOCYTES 0.4 thou/uL (0.8-5.3); ABSOLUTE MONOCYTES 0.4 thou/uL (0.0-1.2); ABSOLUTE NEUTROPHILS 7.7 thou/uL (1.6-8.1); BASOPHILS 0.4 %; EOSINOPHILS 0.5 %; HEMATOCRIT 23.3 % (37.0-47.0); HEMOGLOBIN 7.8 gm/dL (12.0-15.0); LYMPHOCYTES 4.6 %; MCHC 33.3 g/dL (28.0-37.0); MCV 90.1 fL (80.0-100.0); MONOCYTES 4.9 %; MPV 7.6 fl. (7.2-11.1); NUCLEATED RBCS 0 /100WBC; PLATELET COUNT* 153 thou/uL (150-400); POLYS 89.6 %; RBC 2.58 mil/uL (4.20-5.00); RDW-CV 16.7 % (10.5-14.5); WBC 8.6 thou/uL (4.0-11.0)
[2020-10-09 17:04] LABS: CALCIUM 8.7 mg/dL (8.5-10.1); CREATININE 0.5 mg/dL (0.6-1.3); MAGNESIUM 2.4 mg/dL (1.8-2.4); POTASSIUM 4.7 mmol/L (3.5-5.1)
[2020-10-09 17:58] LABS: ESR (SEDRATE) 70 mm/hr (0-30)
--- NOTE | 2020-10-09 18:55 | NUR ---
KUB showed stable ileus, Dr. Fountain noted. tube feeding held. Order given to start Golytely at 30ml/hr for 1000ml. Possible trach and peg tommorrow per Dr. Granados.
[2020-10-10] VITALS (111 sets, daily range): BP systolic 101–231; BP diastolic 45–156
[2020-10-10 04:05] LABS: ABSOLUTE BASOPHILS 0.1 thou/uL (0.0-0.2); ABSOLUTE LYMPHOCYTES 0.3 thou/uL (0.8-5.3); ABSOLUTE MONOCYTES 0.2 thou/uL (0.0-1.2); ABSOLUTE NEUTROPHILS 4.8 thou/uL (1.6-8.1); BASOPHILS 1.4 %; EOSINOPHILS 0.1 %; LYMPHOCYTES 6.1 %; MCH 29.8 pg (26.0-34.0); MCHC 32.7 g/dL (28.0-37.0); MCV 90.9 fL (80.0-100.0); MONOCYTES 4.5 %; MPV 7.5 fl. (7.2-11.1); NUCLEATED RBCS 1 /100WBC; PLATELET COUNT* 119 thou/uL (150-400); POLYS 87.9 %; RBC 2.19 mil/uL (4.20-5.00); RDW-CV 17.2 % (10.5-14.5); WBC 5.5 thou/uL (4.0-11.0)
[2020-10-10 04:25] LABS: ALBUMIN 2.6 g/dL (3.4-5.0); CALCIUM 8.2 mg/dL (8.5-10.1); CREATININE 0.4 mg/dL (0.6-1.3); MAGNESIUM 2.5 mg/dL (1.8-2.4); POTASSIUM 4.7 mmol/L (3.5-5.1); TOTAL BILIRUBIN 0.6 mg/dL (<0.1-1.0); TOTAL PROTEIN 5.6 g/dL (6.4-8.2)
[2020-10-10 04:26] LABS: PHOSPHORUS* 4.5 mg/dL (2.5-4.9)
[2020-10-10 05:48] LABS: HEMATOCRIT 19.9 % (37.0-47.0); HEMOGLOBIN 6.5 gm/dL (12.0-15.0)
[2020-10-10 08:28] LABS: BE 0.9 mmol/L (-2 to +3); PO2 90.7 mmHg (75.0-100.0)
[2020-10-10 08:30] LABS: PCO2 55.7 mmHg (35.0-45.0)
--- NOTE | 2020-10-10 10:01 | NUR ---
0915 SEDATION VACATION STARTED AND PATIENT IS TOLERATING OTHER THAN BECOMING HYPERTENSIVE. PATIENT GIVEN HYDRALIZINE WITH GOOD RESULTS. LOPRESSOR GIVEN FOR SLIGHT TACHYCARDIA WITH GOOD RESULTS. [address] GONZALES ABOUT PATIENT SEDATION VACATION AND THE FACT THAT DR DEL ROSARIO WOULD LIKE TO SEE IF WE CAN WAKE HER UP BEFORE WE PEG AND TRACH. DR GONZALES ON BOARD. 900 CRITICAL ABG RESULT CALLED TO DR LOTT.
--- NOTE | 2020-10-10 14:34 | NUR ---
ICU rounds: Vent, peep at 5. Plan trach and peg tomorrow.
[2020-10-10 14:38] LABS: HEMATOCRIT 28.5 % (37.0-47.0)
[2020-10-10 14:40] LABS: HEMOGLOBIN 9.7 gm/dL (12.0-15.0)
[2020-10-10 17:22] LABS: ABSOLUTE LYMPHOCYTES 0.3 thou/uL (0.8-5.3); ABSOLUTE MONOCYTES 0.8 thou/uL (0.0-1.2); BASOPHILS 0.1 %; EOSINOPHILS 0.1 %; HEMATOCRIT 28.1 % (37.0-47.0); HEMOGLOBIN 9.5 gm/dL (12.0-15.0); LYMPHOCYTES 3.1 %; MCH 30.2 pg (26.0-34.0); MCHC 33.7 g/dL (28.0-37.0); MCV 89.7 fL (80.0-100.0); MPV 7.2 fl. (7.2-11.1); NUCLEATED RBCS 0 /100WBC; POLYS 89.7 %; RBC 3.13 mil/uL (4.20-5.00); WBC 11.1 thou/uL (4.0-11.0)
[2020-10-10 17:25] LABS: BE 5.3 mmol/L (-2 to +3); PO2 63.4 mmHg (75.0-100.0); pH 7.498 (7.340-7.450)
[2020-10-10 17:27] LABS: PLATELET COUNT* 201 thou/uL (150-400)
[2020-10-10 17:33] LABS: CALCIUM 8.4 mg/dL (8.5-10.1); CREATININE 0.4 mg/dL (0.6-1.3); MAGNESIUM 2.5 mg/dL (1.8-2.4); POTASSIUM 4.1 mmol/L (3.5-5.1)
[2020-10-11] VITALS (144 sets, daily range): BP systolic 98–187; BP diastolic 46–77
[2020-10-11 06:20] LABS: ABSOLUTE LYMPHOCYTES 0.4 thou/uL (0.8-5.3); ABSOLUTE MONOCYTES 0.6 thou/uL (0.0-1.2); ABSOLUTE NEUTROPHILS 10.1 thou/uL (1.6-8.1); BASOPHILS 0.2 %; HEMATOCRIT 26.7 % (37.0-47.0); HEMOGLOBIN 8.9 gm/dL (12.0-15.0); MCH 30.1 pg (26.0-34.0); MCHC 33.6 g/dL (28.0-37.0); MCV 89.8 fL (80.0-100.0); MONOCYTES 5.1 %; MPV 7.4 fl. (7.2-11.1); NUCLEATED RBCS 1 /100WBC; PLATELET COUNT* 219 thou/uL (150-400); POLYS 90.7 %; RBC 2.97 mil/uL (4.20-5.00); RDW-CV 16.2 % (10.5-14.5); WBC 11.1 thou/uL (4.0-11.0)
[2020-10-11 06:24] LABS: CALCIUM 8.6 mg/dL (8.5-10.1); CREATININE 0.4 mg/dL (0.6-1.3); POTASSIUM 4.2 mmol/L (3.5-5.1)
[2020-10-11 06:33] LABS: PROTIME 10.4 Seconds (9.20-11.50)
--- NOTE | 2020-10-11 06:33 | NUR ---
PT NPO AFTER MIDNIGHT FOR PEG TUBE PLACEMENT AND TRACHEOSTOMY. PT BATHED, COMPLETE BED CHANGE DONE. AM LABS PENDING.
--- NOTE | 2020-10-11 15:16 | NUR ---
ICU rounds: Doing better. Pt to get trach and peg today at 5pm. Remains on vent, fio2 55%, peep 5.
--- NOTE | 2020-10-11 23:16 | NUR ---
PT ARRIVED TO ICU AT 1915 WITH OR TEAM. RECIEVED REPORT AT THAT TIME. PT'S PRESENT AND UPDATED ON SUGURY AND PT'S CONDITION AFTER PT SETTLED IN ROOM. RT CONNECTED PT TO VENTILATOR AND MANAGED INITAL CARE OF TRACHEOSTOMY. PT CONTINUED ON SEDATION PER ORDERS FROM DR LOTT.
[2020-10-12] VITALS (37 sets, daily range): BP systolic 85–208; BP diastolic 48–94
[2020-10-12 04:19] LABS: HEMATOCRIT 24.7 % (37.0-47.0); HEMOGLOBIN 8.5 gm/dL (12.0-15.0); MCHC 34.3 g/dL (28.0-37.0); MCV 90.4 fL (80.0-100.0); NUCLEATED RBCS 0 /100WBC; PLATELET COUNT* 169 thou/uL (150-400); RBC 2.73 mil/uL (4.20-5.00); RDW-CV 16.3 % (10.5-14.5); WBC 10.6 thou/uL (4.0-11.0)
[2020-10-12 04:27] LABS: PHOSPHORUS* 4.2 mg/dL (2.5-4.9)
[2020-10-12 04:31] LABS: ALBUMIN 2.7 g/dL (3.4-5.0); CALCIUM 8.1 mg/dL (8.5-10.1); CREATININE 0.5 mg/dL (0.6-1.3); MAGNESIUM 2.5 mg/dL (1.8-2.4); POTASSIUM 3.8 mmol/L (3.5-5.1); TOTAL BILIRUBIN 0.7 mg/dL (<0.1-1.0); TOTAL PROTEIN 5.5 g/dL (6.4-8.2)
[2020-10-12 06:30] LABS: ABSOLUTE LYMPHOCYTES 0.4 thou/uL (0.8-5.3); ABSOLUTE MONOCYTES 0.2 thou/uL (0.0-1.2); MYELOCYTES 1 %; PLATELET ESTIMATE ADEQUATE
[2020-10-12 06:31] LABS: ANISOCYTOSIS 1+; POIKILOCYTOSIS 1+; POLYCHROMASIA 1+
[2020-10-12 12:07] LABS: BE 5.9 mmol/L (-2 to +3); PCO2 42.9 mmHg (35.0-45.0); PO2 75.3 mmHg (75.0-100.0); pH 7.466 (7.340-7.450)
--- NOTE | 2020-10-12 14:35 | NUR ---
ICU rounds: Pt doing good. Trach and peg placed yesterday. Vent settings remain the same, remains sedated. Start tube feeds tonight. in room at bedside.
--- NOTE | 2020-10-12 15:05 | NUR ---
SEE MAR-PRECEDEX STARTED PER PROTOCOL. PT SBP DECREASED FROM 170'S TO 90'S. PRECEDEX PLACED ON HOLD-BP INCREASED TO PT BASELINE. DR LOTT NOIFIED AND PRECEDEX STOPPED. SEE PANKAJ. Luis Felipe SCHAEFER RN
[2020-10-13] VITALS (62 sets, daily range): BP systolic 93–152; BP diastolic 46–82
--- NOTE | 2020-10-13 07:28 | NUR ---
ASSESSMENTS CHARTED. TITRATED FI02 TO 45%, TUBE FEEDING STARTED THIS SHIFT. ART LINE DISCONTINUED AFTER IT WOULD NOT DRAW BACK OR FLUSH. NO SIGNIFICANT EVENTS THIS SHIFT
[2020-10-13 08:11] LABS: ABSOLUTE EOSINOPHILS 0.1 thou/uL (0.0-0.7); ABSOLUTE LYMPHOCYTES 1.1 thou/uL (0.8-5.3); ABSOLUTE MONOCYTES 0.5 thou/uL (0.0-1.2); BASOPHILS 0.3 %; HEMATOCRIT 27.3 % (37.0-47.0); MCH 30.1 pg (26.0-34.0); MCHC 33.2 g/dL (28.0-37.0); MCV 90.7 fL (80.0-100.0); MPV 7.4 fl. (7.2-11.1); NUCLEATED RBCS 0 /100WBC; PLATELET COUNT* 196 thou/uL (150-400); POLYS 85.7 %; RBC 3.01 mil/uL (4.20-5.00); RDW-CV 16.4 % (10.5-14.5); WBC 12.8 thou/uL (4.0-11.0)
[2020-10-13 08:39] LABS: ALBUMIN 2.7 g/dL (3.4-5.0); CALCIUM 8.2 mg/dL (8.5-10.1); CREATININE 0.4 mg/dL (0.6-1.3); MAGNESIUM 2.3 mg/dL (1.8-2.4); POTASSIUM 3.1 mmol/L (3.5-5.1); TOTAL BILIRUBIN 0.9 mg/dL (<0.1-1.0); TOTAL PROTEIN 5.7 g/dL (6.4-8.2)
--- NOTE | 2020-10-13 15:30 | NUR ---
ICU rounds: Doing well. FIo2 45%. Requiring sedation, tachy when off. Follows commands. Restart TF with peg. Picc, david. Weak.
--- NOTE | 2020-10-13 17:12 | NUR ---
DR LOTT NOTIFIED PT CONT TO HAVE RR HIGH 20S-30'S. HR REMAINS <100 BPM. SEE ORDERS. VERSED TITRATED PER ORDER. DECREASED STIMULATION IN ROOM. Rossy SCHAEFER RN
[2020-10-13 17:55] LABS: CALCIUM 8.3 mg/dL (8.5-10.1); CREATININE 0.4 mg/dL (0.6-1.3); MAGNESIUM 2.5 mg/dL (1.8-2.4)
[2020-10-13 17:56] LABS: POTASSIUM 4.9 mmol/L (3.5-5.1)
--- NOTE | 2020-10-13 19:17 | NUR ---
PT CURRENTLY LYING IN BED W/ EYES CLOSED. RR NOW 12 HR 80'S AND BP 100'S/60'S. VERSED AT MAX DOSE. NO S/SX DISCOMFORT. DECREASED STIMULATION IN ROOM. FULL UPDATE OF POC AND TX TO , SIENNA, AT BEDSIDE T/O DAY. BIVONE TTS TRACH SUTURED C/D/I. CONT SAME VENT SETTINGS. POSSIBLE WEANING TRIAL IN AM 10/14 IF VS REMAIN WNL. MINIMAL SECRETIONS SUCTIONED FROM INLINE. ORAL CARE COMPLETED Q 2HRS. SIMON TO D/D. NO BM W/ MAG CITRATE. BS HYPOACTIVE. TOLERATING TF AND WATER FLUSHES. PEG INSERTION SITE AT 4CM. TF WILL BE CHANGED TO JEVITY 1.5 W/ GOAL 55CC/HR AND CONTINUE H20 FLUSHES AFTER CURRENT BOTTLE OF NEPRO COMPLETED. CONT TO HAVE GENERALIZED EDEMA. PROM COMPLETED INTERMITTENTLY TOLERATE T/O DAY. TURN Q 2HR. LOW GRADE FEVER T/O DAY W/ T MAX 99.5. PICC TO [facility] CHANGED THIS SHIFT. HAIR WASHED AND BRUSHED. SCDS AND DROP FOOT BOOT ON. KCL REPLACED THIS AM PER PROTOCOL. Rossy SCHAEFER RN
[2020-10-14] VITALS (26 sets, daily range): BP systolic 83–171; BP diastolic 39–141
[2020-10-14 04:21] LABS: ABSOLUTE EOSINOPHILS 0.1 thou/uL (0.0-0.7); ABSOLUTE LYMPHOCYTES 0.6 thou/uL (0.8-5.3); ABSOLUTE MONOCYTES 0.3 thou/uL (0.0-1.2); BASOPHILS 0.3 %; EOSINOPHILS 0.7 %; HEMATOCRIT 25.5 % (37.0-47.0); HEMOGLOBIN 8.4 gm/dL (12.0-15.0); LYMPHOCYTES 5.6 %; MCH 30.1 pg (26.0-34.0); MCHC 32.8 g/dL (28.0-37.0); MCV 91.6 fL (80.0-100.0); MPV 7.3 fl. (7.2-11.1); NUCLEATED RBCS 0 /100WBC; PLATELET COUNT* 151 thou/uL (150-400); POLYS 90.4 %; RBC 2.79 mil/uL (4.20-5.00); RDW-CV 17.2 % (10.5-14.5); WBC 11.1 thou/uL (4.0-11.0)
--- NOTE | 2020-10-14 04:36 | NUR ---
PT. REMAINS ON TRACH, NO VENT SETTING CHANGES. REMAINS ON SEDATION (SEE TITRATION CHARTING). WILL CONTINUE TO MONITOR.
[2020-10-14 04:40] LABS: ALBUMIN 2.3 g/dL (3.4-5.0); CREATININE 0.3 mg/dL (0.6-1.3); MAGNESIUM 2.8 mg/dL (1.8-2.4); POTASSIUM 4.4 mmol/L (3.5-5.1); TOTAL BILIRUBIN 0.6 mg/dL (<0.1-1.0); TOTAL PROTEIN 5.6 g/dL (6.4-8.2)
--- NOTE | 2020-10-14 14:23 | NUR ---
ICU rounds: Attempted to wean today. Pt remains on vent and sedated. TF. Versed and fentanyl. Repeat Cxr. Pt will need LTAC, CM to fax referral.
[2020-10-15] VITALS (18 sets, daily range): BP systolic 91–171; BP diastolic 38–109
--- NOTE | 2020-10-15 04:19 | NUR ---
ASSUMED CARE AT 1910H, WITH TRACH ON VENT AT 45%, TOERATED. SEEN ON BED SEDATED WITH VERSED AND FENTANYL. PT WAS TACHYPNIC, FENTANYL INCREASED. AT TIMES PT OPEN HER EYES. TYLENOL GIVEN FOR FEVER. NO BLEEDING NOTED. CONTINUE MONITORING AND TOWARDS GOALS. VERSED AT 10MG/HR AND FENTANYL AT 120MICS.
[2020-10-15 05:02] LABS: HEMATOCRIT 23.6 % (37.0-47.0); HEMOGLOBIN 7.7 gm/dL (12.0-15.0); MCHC 32.7 g/dL (28.0-37.0); MCV 91.7 fL (80.0-100.0); MPV 7.2 fl. (7.2-11.1); NUCLEATED RBCS 0 /100WBC; PLATELET COUNT* 155 thou/uL (150-400); RBC 2.57 mil/uL (4.20-5.00); RDW-CV 16.9 % (10.5-14.5); WBC 11.5 thou/uL (4.0-11.0)
[2020-10-15 05:24] LABS: CALCIUM 7.8 mg/dL (8.5-10.1); CREATININE 0.4 mg/dL (0.6-1.3); MAGNESIUM 2.7 mg/dL (1.8-2.4); PHOSPHORUS* 1.2 mg/dL (2.5-4.9); POTASSIUM 4.3 mmol/L (3.5-5.1); TOTAL BILIRUBIN 0.6 mg/dL (<0.1-1.0); TOTAL PROTEIN 5.1 g/dL (6.4-8.2)
[2020-10-15 06:17] LABS: ABSOLUTE NEUTROPHILS 10.5 thou/uL (1.6-8.1); MYELOCYTES 1 %; PLATELET ESTIMATE ADEQUATE
--- NOTE | 2020-10-15 08:50 | NUR ---
0730 ASSUMED CARE OF PATIENT. PLEASE SEE DOCUMENTED ASSESSMENT. PHOSPHORUS REPLACEMENT STARTED.
--- NOTE | 2020-10-15 17:35 | NUR ---
LITTLE PROGRESS TOWARDS GOALS. NO SEDATION VACATION TODAY PER ORDER PULMONARY. REMAINS ON FENTANYL AND VERSED DRIPS. EYES OPEN AT TIMES BUT NOT FOCUSED. DIURESED AGRESSIVELY AND STOOLS CHARTED. SPOUSE HAS BEEN PRESENT MOST OF THE DAY.
--- NOTE | 2020-10-15 18:20 | NUR ---
PATIENT OPENED HER EYES WHEN I CALLED HER NAME.
--- NOTE | 2020-10-15 18:33 | NUR ---
PEG TUBE REMAINS AT 4 CM.
[2020-10-16] VITALS (37 sets, daily range): BP systolic 84–183; BP diastolic 35–153
[2020-10-16 05:05] LABS: ABSOLUTE EOSINOPHILS 0.1 thou/uL (0.0-0.7); ABSOLUTE LYMPHOCYTES 0.9 thou/uL (0.8-5.3); ABSOLUTE MONOCYTES 0.3 thou/uL (0.0-1.2); BASOPHILS 0.4 %; EOSINOPHILS 0.5 %; HEMATOCRIT 24.3 % (37.0-47.0); LYMPHOCYTES 7.6 %; MCH 29.9 pg (26.0-34.0); MCHC 32.8 g/dL (28.0-37.0); MONOCYTES 2.8 %; MPV 7.4 fl. (7.2-11.1); NUCLEATED RBCS 0 /100WBC; PLATELET COUNT* 178 thou/uL (150-400); POLYS 88.7 %; RBC 2.68 mil/uL (4.20-5.00); RDW-CV 16.4 % (10.5-14.5); WBC 11.3 thou/uL (4.0-11.0)
--- NOTE | 2020-10-16 05:05 | NUR ---
ASSUMED CARE AT 1910H, ON VENT AT 45% AND DECREASE TO 40% AND TOLERATED. OPENED EYES AT TIMES. WITH SEDATION OF FENTANYL AND VERSED. WITH EPISODES OF TACHYPNIA, SEDATION INCREASE. NO FEVER AND NO DISTRESS NOTED. CONTINUE MONITORING AND TOWARDS GOALS. CERSED AT 10MG/HR AND FENTANYL AT 12OMICS.
[2020-10-16 05:18] LABS: ALBUMIN 2.6 g/dL (3.4-5.0); CALCIUM 8.2 mg/dL (8.5-10.1); CREATININE 0.4 mg/dL (0.6-1.3); MAGNESIUM 2.7 mg/dL (1.8-2.4); POTASSIUM 3.7 mmol/L (3.5-5.1); TOTAL BILIRUBIN 0.7 mg/dL (<0.1-1.0); TOTAL PROTEIN 5.6 g/dL (6.4-8.2)
[2020-10-16 05:28] LABS: PHOSPHORUS* 3.1 mg/dL (2.5-4.9)
--- NOTE | 2020-10-16 10:28 | NUR ---
0212 ASSUMED CARE OF PATIENT. PLEASE SEE DOCUMENTED ASSESSMENT. PT IS INCONTINENT OF COPIOUS AMOUNT OF BROWN STOOL.
--- NOTE | 2020-10-16 17:10 | NUR ---
PATIENT HAS MADE SOME PROGRESS TOWARDS GOALS. WEANING IV SEDATION TOLERATED WITH ADDITION OF ENTERAL SEDATION. HAD COPIOUS BOWEL MOVEMENT THIS MORNING. TOLERATING TUBE FEEDING. OUTPUT CHARTED POST DIURESIS. OPENS EYES TO VERBAL AND TACTILE STIMULATION. SPOUSE PRESENT MOST OF THE DAY.
[2020-10-17] VITALS (46 sets, daily range): BP systolic 86–187; BP diastolic 39–156
[2020-10-17 04:07] LABS: ABSOLUTE BASOPHILS 0.1 thou/uL (0.0-0.2); ABSOLUTE MONOCYTES 0.6 thou/uL (0.0-1.2); BASOPHILS 0.5 %; EOSINOPHILS 0.4 %; HEMATOCRIT 26.5 % (37.0-47.0); HEMOGLOBIN 8.7 gm/dL (12.0-15.0); LYMPHOCYTES 8.2 %; MCH 30.3 pg (26.0-34.0); MCHC 32.9 g/dL (28.0-37.0); MCV 92.1 fL (80.0-100.0); MONOCYTES 4.9 %; MPV 7.8 fl. (7.2-11.1); NUCLEATED RBCS 0 /100WBC; PLATELET COUNT* 230 thou/uL (150-400); RBC 2.87 mil/uL (4.20-5.00); RDW-CV 16.6 % (10.5-14.5); WBC 12.8 thou/uL (4.0-11.0)
[2020-10-17 04:14] LABS: ALBUMIN 2.5 g/dL (3.4-5.0); CALCIUM 8.4 mg/dL (8.5-10.1); CREATININE 0.5 mg/dL (0.6-1.3); MAGNESIUM 2.6 mg/dL (1.8-2.4); POTASSIUM 4.5 mmol/L (3.5-5.1); TOTAL BILIRUBIN 0.8 mg/dL (<0.1-1.0)
--- NOTE | 2020-10-17 14:17 | NUR ---
ICU rounds: CM spoke with LT[facility], still pending bed availability. Per , Pt is on continous sedation and will be until likely the end of the week per pulm, CM updated LTAC, awaiting LTAC's decision as to if they can still accept. Pt does not have a DPOA in place
--- NOTE | 2020-10-17 18:03 | NUR ---
VSS THIS SHIFT. FENT DRIP STOPPED, FENT PATCH PLACED. SEE CHARTED ASSESSMENT. TURNS 2QH. NO COMPLICATIONS THIS SHIFT.
[2020-10-18] VITALS (38 sets, daily range): BP systolic 94–156; BP diastolic 45–90
--- NOTE | 2020-10-18 01:21 | NUR ---
10/[address] LOTT. PT TACHYCARDIC, TACHYPNEA RATE 38-42, 02 86%-90%. ORDER TO RESTART FENTANYL AT 100MG/HR. REMOVE FENTANYL PATCH 2HRS AFTER STARTING FENTANYL GTT. CHANGE VERSED MAX TO 10MG/HR. ORDER STAT CHEST X-RAY.
[2020-10-18 03:33] LABS: HEMATOCRIT 28.5 % (37.0-47.0); HEMOGLOBIN 9.2 gm/dL (12.0-15.0); MCH 29.6 pg (26.0-34.0); MCHC 32.4 g/dL (28.0-37.0); MCV 91.3 fL (80.0-100.0); MPV 7.8 fl. (7.2-11.1); NUCLEATED RBCS 0 /100WBC; PLATELET COUNT* 280 thou/uL (150-400); RBC 3.12 mil/uL (4.20-5.00); RDW-CV 16.6 % (10.5-14.5); WBC 12.6 thou/uL (4.0-11.0)
[2020-10-18 03:34] LABS: ALBUMIN 2.6 g/dL (3.4-5.0); CALCIUM 8.3 mg/dL (8.5-10.1); CREATININE 0.5 mg/dL (0.6-1.3); MAGNESIUM 2.4 mg/dL (1.8-2.4); POTASSIUM 4.4 mmol/L (3.5-5.1); TOTAL BILIRUBIN 0.7 mg/dL (<0.1-1.0); TOTAL PROTEIN 6.5 g/dL (6.4-8.2)
[2020-10-18 04:35] LABS: ABSOLUTE EOSINOPHILS 0.1 thou/uL (0.0-0.7); ABSOLUTE NEUTROPHILS 9.5 thou/uL (1.6-8.1); METAMYELOCYTES 1 %; PLATELET ESTIMATE ADEQUATE; TOXIC GRANULATION 1+
[2020-10-18 04:37] LABS: CLUMPED PLTS RARE
[2020-10-18 04:38] LABS: POLYCHROMASIA 1+
[2020-10-18 08:45] LABS: BE 5.6 mmol/L (-2 to +3); PCO2 45.9 mmHg (35.0-45.0); PO2 86.4 mmHg (75.0-100.0); pH 7.439 (7.340-7.450)
--- NOTE | 2020-10-18 15:00 | NUR ---
ICU rounds: LTAC can accept Pt on continous versed but not continuous fentanyl, updated Dr, work to wean as tolerated. Remains on vent.
--- NOTE | 2020-10-18 17:27 | NUR ---
THIS ICT HELP DESK TECHNICIAN ASSUMED CARE OF PT AT 0700 ASSESSMENT CHARTED. PT REMAINS TRACHED AND ON VENT TOLERATING WELL WITH SEDATION VERSAD AND FENTANYL. NO FOLLOWING COMMANDS OR PURPOSFUL MOVEMENT WILL CLOSE MOUTH DURING ORAL CARE TRACH AND PEG CARE COMPLETE TOLERATING TUBEFEED WELL LOW RISDUALS WILL TRY AND TITRATE DOWN ON DRIPS FOR LTACH PLACEMENT PCR SENT OFF AGAIN AWAITING CT RESULTS SPOKE WITH OVI IN LAB HE STATED HE SPOKE WITH DR KAPLAN REGARDING RESULTS FROM THE 15TH ORDER TO DC ISOLATION IS IN PLACE SPOUSE SIENNA AT BEDSIDE UPDATED WITH INFORMATION
[2020-10-19] VITALS (35 sets, daily range): BP systolic 91–193; BP diastolic 43–114
[2020-10-19 05:31] LABS: ABSOLUTE BASOPHILS 0.2 thou/uL (0.0-0.2); ABSOLUTE MONOCYTES 0.9 thou/uL (0.0-1.2); ABSOLUTE NEUTROPHILS 12.5 thou/uL (1.6-8.1); BASOPHILS 1.2 %; HEMATOCRIT 26.5 % (37.0-47.0); HEMOGLOBIN 8.8 gm/dL (12.0-15.0); LYMPHOCYTES 6.8 %; MCH 30.7 pg (26.0-34.0); MCHC 33.3 g/dL (28.0-37.0); MCV 92.1 fL (80.0-100.0); MONOCYTES 5.9 %; MPV 7.9 fl. (7.2-11.1); NUCLEATED RBCS 0 /100WBC; PLATELET COUNT* 249 thou/uL (150-400); POLYS 86.1 %; RBC 2.88 mil/uL (4.20-5.00); RDW-CV 16.4 % (10.5-14.5); WBC 14.6 thou/uL (4.0-11.0)
[2020-10-19 05:50] LABS: ALBUMIN 3.1 g/dL (3.4-5.0); CALCIUM 9.2 mg/dL (8.5-10.1); CREATININE 0.5 mg/dL (0.6-1.3); MAGNESIUM 2.8 mg/dL (1.8-2.4); POTASSIUM 4.6 mmol/L (3.5-5.1); TOTAL BILIRUBIN 0.8 mg/dL (<0.1-1.0); TOTAL PROTEIN 6.9 g/dL (6.4-8.2)
--- NOTE | 2020-10-19 07:37 | NUR ---
ASSUMED PATIENT CARE AT 1900. ASSESSMENTS COMPLETED CHARTED. CARDIAC MONITORING IN PLACE. PATIENT TURNED Q2 FOR SKIN INTEGRITY AND COMFORT. BED LOCKED AND IN LOWEST POSITION.
[2020-10-19 12:00] LABS: BE 6.6 mmol/L (-2 to +3); PCO2 39.9 mmHg (35.0-45.0); PO2 69.7 mmHg (75.0-100.0); pH 7.498 (7.340-7.450)
--- NOTE | 2020-10-19 14:06 | NUR ---
ICU rounds: Vent, sedated. On 2 continous sedations, fent and versed. FIO2 up to 55%. CT of head, chest and abd today. LT[facility] following.
--- NOTE | 2020-10-19 19:29 | NUR ---
VENT SUPPORT CONTD, SETTINGS UNCHANGED EXCEPT FIO2 WHICH IS DOWN TO 50% THIS SHIFT. SEDATION CONTD WITH FENTANYL AND VERSED GTTs. TOLERATING TUBE FEEDS. VSS. TRACHEOSTOMY CARE PROVIDED. Q2 TURNS AND ORAL CARE GIVEN.
[2020-10-20] VITALS (39 sets, daily range): BP systolic 98–168; BP diastolic 41–105
[2020-10-20 05:01] LABS: HEMATOCRIT 27.8 % (37.0-47.0); HEMOGLOBIN 8.9 gm/dL (12.0-15.0); MCH 29.9 pg (26.0-34.0); MCHC 32.1 g/dL (28.0-37.0); MCV 93.1 fL (80.0-100.0); MPV 7.7 fl. (7.2-11.1); RBC 2.99 mil/uL (4.20-5.00); RDW-CV 16.7 % (10.5-14.5); WBC 18.4 thou/uL (4.0-11.0)
[2020-10-20 05:27] LABS: ALBUMIN 3.1 g/dL (3.4-5.0); CALCIUM 8.9 mg/dL (8.5-10.1); CREATININE 0.5 mg/dL (0.6-1.3); POTASSIUM 4.3 mmol/L (3.5-5.1); TOTAL BILIRUBIN 0.8 mg/dL (<0.1-1.0); TOTAL PROTEIN 6.7 g/dL (6.4-8.2)
--- NOTE | 2020-10-20 06:00 | NUR ---
ASSUMED PATIENT CARE AT 1900. ASSESSMENTS COMPLETED CHARTED. CARDIAC MONITORING IN PLACE. TRACHEOSTOMY CARE PERFORMED AND DRESSING CHANGED. PATIENT HAD ONE BM DURING SHIFT. FALL PRECAUTIONS IN PLACE FOR PATIENT SAFETY. BED LOCKED AND IN LOWEST POSITION.
--- NOTE | 2020-10-20 15:01 | NUR ---
ICU rounds: Working to wean fentanyl.
--- NOTE | 2020-10-20 19:10 | NUR ---
STARTED OXYCODONE TODAY, PLAN TO WEAN OFF OF THE FENTANYL DRIP; COMPLETE BED BATH GIVEN; TOLORATING TUBE FEEDS.
[2020-10-21] VITALS (25 sets, daily range): BP systolic 95–184; BP diastolic 36–91
[2020-10-21 05:19] LABS: HEMATOCRIT 23.6 % (37.0-47.0); HEMOGLOBIN 7.9 gm/dL (12.0-15.0); MCH 30.9 pg (26.0-34.0); MCHC 33.3 g/dL (28.0-37.0); MCV 92.6 fL (80.0-100.0); MPV 7.3 fl. (7.2-11.1); RBC 2.55 mil/uL (4.20-5.00); RDW-CV 16.7 % (10.5-14.5); WBC 10.2 thou/uL (4.0-11.0)
[2020-10-21 05:46] LABS: ALBUMIN 3.1 g/dL (3.4-5.0); CALCIUM 8.6 mg/dL (8.5-10.1); CREATININE 0.4 mg/dL (0.6-1.3); MAGNESIUM 2.5 mg/dL (1.8-2.4); POTASSIUM 4.2 mmol/L (3.5-5.1); TOTAL BILIRUBIN 0.8 mg/dL (<0.1-1.0); TOTAL PROTEIN 6.1 g/dL (6.4-8.2)
[2020-10-21 09:25] LABS: BE 7.3 mmol/L (-2 to +3); PCO2 39.4 mmHg (35.0-45.0); PO2 66.8 mmHg (75.0-100.0); pH 7.511 (7.340-7.450)
--- NOTE | 2020-10-21 13:46 | NUR ---
ICU rounds: Vent. Wean fentanyl, start oxy. TF. Fecal impaction, serial KUBs ordered. LTAC following.
[2020-10-21 15:52] LABS: URINE BILIRUBIN NEGATIVE (Negative); URINE BLOOD 2+ (Negative); URINE COLOR YELLOW; URINE GLUCOSE-RANDOM NEGATIVE (Negative); URINE KETONES NEGATIVE (Negative); URINE LEUKOCYTES-REFLEX NEGATIVE (Negative); URINE NITRITE-REFLEX NEGATIVE (Negative); URINE PROTEIN TRACE (Negative); URINE SPECIFIC GRAVITY 1.015 (1.005-1.030)
[2020-10-21 15:59] LABS: URINE CLARITY HAZY
[2020-10-21 16:02] LABS: BACTERIA-REFLEX None Seen /HPF (None Seen); CASTS None Seen /LPF (None Seen); CRYSTALS None Seen /LPF (None Seen); SQUAMOUS 0-3 Few /LPF (0-3); URINE RBC >20 Many /HPF (0-2); URINE WBC-REFLEX 0-5 Rare /HPF (0-5)
--- NOTE | 2020-10-21 19:00 | NUR ---
FENTANYL GTT TITRATED DOWN TO 25 MCG/HR THIS SHIFT, TOLERATING WELL.
[2020-10-22] VITALS (26 sets, daily range): BP systolic 88–185; BP diastolic 43–84
[2020-10-22 05:39] LABS: HEMOGLOBIN 8.4 gm/dL (12.0-15.0); MCH 30.4 pg (26.0-34.0); MCHC 32.3 g/dL (28.0-37.0); MCV 94.1 fL (80.0-100.0); NUCLEATED RBCS 0 /100WBC; PLATELET COUNT* 169 thou/uL (150-400); RBC 2.77 mil/uL (4.20-5.00); RDW-CV 16.8 % (10.5-14.5); WBC 9.7 thou/uL (4.0-11.0)
[2020-10-22 05:59] LABS: ALBUMIN 2.8 g/dL (3.4-5.0); CALCIUM 8.4 mg/dL (8.5-10.1); CREATININE 0.5 mg/dL (0.6-1.3); POTASSIUM 4.2 mmol/L (3.5-5.1); TOTAL BILIRUBIN 1.2 mg/dL (<0.1-1.0); TOTAL PROTEIN 6.1 g/dL (6.4-8.2)
--- NOTE | 2020-10-22 06:11 | NUR ---
ASSUMED CARE AT 1910H, WITH TRACHEOSTOMY HOOKED TO VENT AT 45%. ON VERSED AT 6MG AND FENTANYL AT 25MICS. FENTANYL STOP AT 2100 AND VERSED DECREASED TO 4MG. FIO2 TO 40%, TOLERATED. WITH OCCASIONAL TACHYPNIA NOTED. WITH LOW GRADE FEVER, PRN MED GIVEN. CONTINUE MONITORING AND TOWARDS GOALS.
[2020-10-22 06:51] LABS: ABSOLUTE LYMPHOCYTES 0.3 thou/uL (0.8-5.3); ABSOLUTE MONOCYTES 0.2 thou/uL (0.0-1.2); ABSOLUTE NEUTROPHILS 9.2 thou/uL (1.6-8.1); MYELOCYTES 2 %; PLATELET ESTIMATE ADEQUATE; TOXIC GRANULATION 1+
[2020-10-22 06:52] LABS: ANISOCYTOSIS 1+; HYPOCHROMASIA Occasional; POIKILOCYTOSIS 1+
[2020-10-22 07:41] LABS: BE -0.9 mmol/L (-2 to +3); PCO2 43.9 mmHg (35.0-45.0); PO2 81.6 mmHg (75.0-100.0); pH 7.365 (7.340-7.450)
--- NOTE | 2020-10-22 18:58 | NUR ---
this marketing copywriter assumed care of pt at 0700 pt remains trached and on vent fentanyl gtt off as of midnight did not turn on during shift pt does become restless and rr go up tp the 40's fent ivp given throughout shift as needed along with prn ativan helps relax pt ángel spouse at bedside throughout shift updates given pt had 3 bm throughout shift
[2020-10-23] VITALS (23 sets, daily range): BP systolic 87–142; BP diastolic 38–83
--- NOTE | 2020-10-23 04:11 | NUR ---
ASSUMED CARE AT 1900H, ON VENT AT 40% AND VERSED DRIP AT 6MG. OPENED EYES TO PAIN AND WITHDREW TO PAIN. PT WAS FEVERISH, PRN MED GIVEN. PT HAD MANY EPISODES OF TACHYPNIA AND TACHYCARDIA, PRN SEDATION GIVEN. KEEP COMFORTABLE AND SAFE. CONTINUE MONITORING AND TOWARDS GOALS.
[2020-10-23 06:17] LABS: HEMATOCRIT 24.3 % (37.0-47.0); HEMOGLOBIN 8.6 gm/dL (12.0-15.0); MCH 32.7 pg (26.0-34.0); MCHC 35.3 g/dL (28.0-37.0); MCV 92.6 fL (80.0-100.0); MPV 7.9 fl. (7.2-11.1); RBC 2.62 mil/uL (4.20-5.00); RDW-CV 17.1 % (10.5-14.5); WBC 8.6 thou/uL (4.0-11.0)
[2020-10-23 06:22] LABS: CALCIUM 8.3 mg/dL (8.5-10.1); CREATININE 0.4 mg/dL (0.6-1.3); POTASSIUM 3.9 mmol/L (3.5-5.1)
[2020-10-24] VITALS (24 sets, daily range): BP systolic 98–148; BP diastolic 41–83
--- NOTE | 2020-10-24 04:19 | NUR ---
ASSUMED CARE AT 1910H, 0N VENT AT 40% AND TOLERATED. PT WAS MORE CALMER, VERSED STOP AT 2100H. STILL WITH LOW GRADE FEVER. WITH OCCASIONAL TACHYPNEA, PRN DILAUDID GIVEN. CONTINUE MONITORING AND TOWARDS GOALS.
[2020-10-24 05:48] LABS: ABSOLUTE LYMPHOCYTES 1.2 thou/uL (0.8-5.3); ABSOLUTE MONOCYTES 0.4 thou/uL (0.0-1.2); ABSOLUTE NEUTROPHILS 7.5 thou/uL (1.6-8.1); BASOPHILS 0.5 %; EOSINOPHILS 0.3 %; HEMATOCRIT 25.4 % (37.0-47.0); HEMOGLOBIN 8.4 gm/dL (12.0-15.0); LYMPHOCYTES 12.7 %; MCH 30.5 pg (26.0-34.0); MCHC 32.8 g/dL (28.0-37.0); MONOCYTES 4.4 %; MPV 8.3 fl. (7.2-11.1); NUCLEATED RBCS 0 /100WBC; PLATELET COUNT* 134 thou/uL (150-400); POLYS 82.1 %; RBC 2.74 mil/uL (4.20-5.00); RDW-CV 17.3 % (10.5-14.5); WBC 9.2 thou/uL (4.0-11.0)
[2020-10-24 05:49] LABS: BE 0.8 mmol/L (-2 to +3); PCO2 39.5 mmHg (35.0-45.0); PO2 75.2 mmHg (75.0-100.0); pH 7.423 (7.340-7.450)
[2020-10-24 06:08] LABS: ALBUMIN 2.3 g/dL (3.4-5.0); CALCIUM 8.8 mg/dL (8.5-10.1); CREATININE 0.4 mg/dL (0.6-1.3); POTASSIUM 4.6 mmol/L (3.5-5.1); TOTAL BILIRUBIN 0.8 mg/dL (<0.1-1.0)
[2020-10-24] MEDS ORDERED: IPRAT-ALBUT 0.5-3 ML INH (09:20)
[2020-10-24] MEDS ORDERED: METOPROLOL TART25 MG PERTUBE (09:29)
[2020-10-24] MEDS ORDERED: HYDRALAZIN20 MG/1 ML IVPUSH (09:29)
[2020-10-24] MEDS ORDERED: OXYCODONE HCL 55 MG PERTUBE (09:29)
[2020-10-24] MEDS ORDERED: METOPROLOL5 MG/5 M2 IVPUSH (09:29)
[2020-10-24] MEDS ORDERED: LORAZEPAM2 MG/1 M1 IVPUSH (09:29)
--- NOTE | 2020-10-24 15:21 | NUR ---
ICU rounds: CM informed today that Pt is medically stable to dc to LT[facility]. CM updated [facility], faxed updated clinicals. LTAC can accept, awaiting ICU bed, hopeful to have a bed tomorrow. Updated Pt's in room. Discussed process to complete a DPOA.
--- NOTE | 2020-10-24 19:02 | NUR ---
this functional tester typewriters assumed care of pt at 0700 assessment as charted versad and fentanyl gtt titrated off pt is able to move to [facility]ac bed avaiable tomorrow at bk spouse updated at bedside ivp given for pain and comfort through out shift pt had rr in the 40s at times 3 bm throughout shift tolerating tubefeed low risduals low grade fever ID consulted and blood cultures drawn
[2020-10-25] VITALS (20 sets, daily range): BP systolic 99–169; BP diastolic 54–82
[2020-10-25 05:16] LABS: ABSOLUTE BASOPHILS 0.1 thou/uL (0.0-0.2); ABSOLUTE LYMPHOCYTES 1.5 thou/uL (0.8-5.3); ABSOLUTE MONOCYTES 0.5 thou/uL (0.0-1.2); ABSOLUTE NEUTROPHILS 6.4 thou/uL (1.6-8.1); BASOPHILS 0.7 %; EOSINOPHILS 0.4 %; HEMATOCRIT 24.5 % (37.0-47.0); HEMOGLOBIN 8.1 gm/dL (12.0-15.0); LYMPHOCYTES 17.5 %; MCH 30.4 pg (26.0-34.0); MCHC 33.2 g/dL (28.0-37.0); MCV 91.6 fL (80.0-100.0); MONOCYTES 6.3 %; MPV 8.1 fl. (7.2-11.1); NUCLEATED RBCS 0 /100WBC; PLATELET COUNT* 145 thou/uL (150-400); POLYS 75.1 %; RBC 2.67 mil/uL (4.20-5.00); RDW-CV 17.4 % (10.5-14.5); WBC 8.5 thou/uL (4.0-11.0)
[2020-10-25 05:38] LABS: LIPASE 88 U/L (73-393); TRIGLYCERIDE 260 mg/dL (<150)
[2020-10-25 05:38] LABS: ALBUMIN 2.3 g/dL (3.4-5.0); CALCIUM 8.5 mg/dL (8.5-10.1); CREATININE 0.4 mg/dL (0.6-1.3); MAGNESIUM 2.3 mg/dL (1.8-2.4); POTASSIUM 4.4 mmol/L (3.5-5.1); TOTAL BILIRUBIN 0.9 mg/dL (<0.1-1.0); TOTAL PROTEIN 6.2 g/dL (6.4-8.2)
--- NOTE | 2020-10-25 07:00 | NUR ---
ASSUMED PATIENT CARE AT 1900. ASSESSMENTS COMPLETED CHARTED. CARDIAC MONITORING IN PLACE. PATIENT HAD A BM THIS SHIFT. TRACH AND PEG CARE COMPLETED. PATIENT TURNED Q2 FOR SKIN INTEGRITY AND COMFORT. BED LOCKED AND IN LOWEST POSITION.
[2020-10-25] MEDS ORDERED: LORAZEPAM 1 MG T1 MG PERTUBE (09:46)
--- NOTE | 2020-10-25 14:20 | NUR ---
Pt discharging to [facility] today, ambulance to picking crew supervisor and transport at 7pm. Faxed updated clinicals. Chart copied. Nurse report number is [phone]. Pt will admit to room 101, under the care of Dr Marissa Garcia. Updated nurse and Pt's . Per LTAC, no visitors at this time.
== END 2020-10-25 19:35 | DRG 4 ==
LOC: M.ERS 20:01 → M.TBA-ER 21:54 → M.ORTHSURG 21:54 → M.ICU 09-16 14:12
PROVIDERS: Emergency Medicine; Family Medicine; Internal Medicine; Internal Medicine Critical Care Medicine; Internal Medicine Gastroenterology; Nurse Practitioner; Pediatrics; ADMIT Internal Medicine; ATTEND Internal Medicine
PROC: XW033E5 Introduction of Remdesivir Anti-infective into Peripheral Vein, Percutaneous Approach, New Technology Group 5 (ICD-10-PCS; principal; 2020-09-15)
PROC: 5A0935A Assistance with Respiratory Ventilation, Less than 24 Consecutive Hours, High Flow/Velocity Cannula (ICD-10-PCS; principal; 2020-09-15)
PROC: 5A1955Z Respiratory Ventilation, Greater than 96 Consecutive Hours (ICD-10-PCS; 2020-09-16)
PROC: 02HV33Z Insertion of Infusion Device into Superior Vena Cava, Percutaneous Approach (ICD-10-PCS; 2020-09-16)
PROC: 0BH17EZ Insertion of Endotracheal Airway into Trachea, Via Natural or Artificial Opening (ICD-10-PCS; 2020-09-16)
PROC: B548ZZA Ultrasonography of Superior Vena Cava, Guidance (ICD-10-PCS; 2020-09-16)
PROC: 30233N1 Transfusion of Nonautologous Red Blood Cells into Peripheral Vein, Percutaneous Approach (ICD-10-PCS; 2020-09-27)
PROC: 0DH63UZ Insertion of Feeding Device into Stomach, Percutaneous Approach (ICD-10-PCS; 2020-10-11)
PROC: 0B110F4 Bypass Trachea to Cutaneous with Tracheostomy Device, Open Approach (ICD-10-PCS; 2020-10-11)
DX: A41.89 Other specified sepsis (principal); U07.1 COVID-19; J96.01 Acute respiratory failure with hypoxia; J69.0 Pneumonitis due to inhalation of food and vomit; J12.82 Pneumonia due to coronavirus disease 2019; G93.1 Anoxic brain damage, not elsewhere classified; E87.0 Hyperosmolality and hypernatremia; K92.2 Gastrointestinal hemorrhage, unspecified; I82.432 Acute embolism and thrombosis of left popliteal vein; I82.442 Acute embolism and thrombosis of left tibial vein; I82.452 Acute embolism and thrombosis of left peroneal vein; G47.33 Obstructive sleep apnea (adult) (pediatric); E87.70 Fluid overload, unspecified; D64.9 Anemia, unspecified; S30.1XXA Contusion of abdominal wall, initial encounter; J98.2 Interstitial emphysema; I95.9 Hypotension, unspecified; D69.6 Thrombocytopenia, unspecified; X58.XXXA Exposure to other specified factors, initial encounter; E66.01 Morbid (severe) obesity due to excess calories; Z68.36 Body mass index [BMI] 36.0-36.9, adult; Z79.82 Long term (current) use of aspirin; Z79.899 Other long term (current) drug therapy; Z99.81 Dependence on supplemental oxygen; Y93.89 Activity, other specified; Y92.89 Other specified places as the place of occurrence of the external cause; Y99.8 Other external cause status

== ENCOUNTER → 2021-03-27 | Outpatient (CLI) | payer MEDICARE ==
[~2021-03-27] MED LIST: APAP650 PO; CLARITIN10 MG PO; DEXAMETHASONE 44 M1 PO; HYDRALAZIN20 MG/1 ML IVPUSH; HYDROCHLOROTHIA25 M2 PO; IPRAT-ALBUT 0.5-3 ML INH; KLOR-CON 1010 MEQ PO; LORAZEPAM 1 MG T1 MG PERTUBE; LORAZEPAM2 MG/1 M1 IVPUSH; METOPROLOL TART25 MG PERTUBE; METOPROLOL5 MG/5 M2 IVPUSH; OXYCODONE HCL 55 MG PERTUBE; SINGULAIR 10 MG10 M1 PO; ST. JOSEPH ASPI81 MG PO; VITAMIN D3 COM1 EACH PO; WOMEN'S 50 PLU1 EAC1 PO; ZYRTEC10 M5 PO
== END ==
LOC: M.RAD 13:55
PROVIDERS: ATTEND Family Medicine
DX: Z12.31 Encounter for screening mammogram for malignant neoplasm of breast (principal); N64.89 Other specified disorders of breast

== ENCOUNTER → 2021-05-04 | Outpatient (CLI) | payer MEDICARE | LOC: M.RAD 13:10 | PROVIDERS: ATTEND Family Medicine | DX: Z13.820 Encounter for screening for osteoporosis (principal); R09.02 Hypoxemia; Z78.0 Asymptomatic menopausal state ==